=== PATIENT | male | born 1965 | race Two or more races ===

== ENCOUNTER 2022-04-14 22:54 | Emergency (ER) | payer MEDICAID, OTHER ==
[~2022-04-14] VITALS: Ht 175.3 cm; Wt 84.0 kg
[2022-04-14] MEDS ORDERED: PANTOPRAZOLE 40 MG/10 ML VIAL INJ IV ONE (23:15)
[2022-04-15 00:02] LABS: Basophils # (auto) 0.1 10 ^3/uL (0-0.2); Basophils % (auto) 0.7 % (0.0-2.0); Eosinophils # (auto) 0.2 10 ^3/uL (0-0.8); Eosinophils % (auto) 2.7 % (0.0-7.0); Hematocrit 41.7 % (41.0-53.0); Hemoglobin 13.9 g/dL (13.5-17.5); Lymphocytes # (auto) 2.5 10 ^3/uL (0.4-5.4); Lymphocytes % (auto) 30.7 % (10.0-50.0); Mean Corpuscular Hgb Conc. 33.4 g/dL (32.0-36.0); Monocytes # (auto) 0.9 10 ^3/uL (0-1.3); Monocytes % (auto) 10.5 % (0.0-12.0); Neutrophils # (auto) 4.5 10 ^3/uL (1.6-8.6); Neutrophils % (auto) 55.4 % (37.0-80.0); Nucleated Red Blood Cells % 0.1 %; Red Blood Cells 4.79 10^6/uL (4.5-5.90); Red Cell Distribution Width 13.5 % (11.8-14.3); White Blood Cell 8.2 10^3/uL (4.4-10.8)
[2022-04-15 00:16] LABS: INR 0.97 (0.9-1.15)
[2022-04-15 00:25] LABS: BUN/Creatinine Ratio 18.7; Calcium 9.3 mg/dL (8.5-10.1); Potassium 4.1 mmol/L (3.5-5.1)
[2022-04-15 00:34] LABS: Bilirubin, Total 0.5 mg/dL (0.2-1.0); Total Protein 7.4 g/dL (6.4-8.2)
[2022-04-15] MEDS ORDERED: ONDANSETRON HCL 4 MG/2 ML VIAL IV ONE (02:30)
[2022-04-15] MEDS ORDERED: HYDROmorphone HCL 2 MG/ML VL/or syr IV ONE (02:30)
[2022-04-15 02:50] VITALS: BP 113/76
[2022-04-15] MEDS ORDERED: CIPR-173 PO (03:57)
[2022-04-15] MEDS ORDERED: ONDA-144 PO (03:57)
[2022-04-15] MEDS ORDERED: PERCOT PO (03:57)
[2022-04-15] MEDS ORDERED: METR500T PO (03:57)
== END 2022-04-15 04:47 | disposition home or self-care (01) ==
LOC: ER 22:54
DX: K57.30 Diverticulosis of large intestine without perforation or abscess without bleeding (principal)
CPT/HCPCS: 36415; 71045; 74176; 80053; 83605; 83690; 84484; 85025; 85610; 93005; 96374; 96375; 99285; C9113; J1170; J2405

== ENCOUNTER 2024-08-28 13:45 | Inpatient (IN) | payer MEDICAID ==
[~2024-08-28] VITALS: Ht 175.3 cm; Wt 98.2 kg
[~2024-08-28 13:45] MED LIST: CIPR-173 PO; METR500T PO; ONDA-144 PO; PERCOT PO
--- NOTE | 2024-08-28 14:10 | ED.PDOC ---
GI ASSESSMENT HPI Comments 59 y/o M, presents to the ED for CC of flu-like symptoms. Patient states, that he has been experiencing flu-like symptoms with associated nausea, vomiting, and diarrhea x1day. Patient relays, emesis to be bright green in appearance. Patient denies social history. Patient denies body aches, chills, sweats, or headache. No other symptoms or modifying factors at this time. Chief Complaint: Flu like Time Seen by MD: 14:00 Primary Care Provider: SAVANAHIES Reviewed Notes: Nurses Notes, Medications, Allergies Allergies: Coded Allergies: NO KNOWN ALLERGIES (Unverified , 01/28/16) Home Meds Active Scripts Ondansetron (Zofran) 4 Mg Tab, 4 MG PO BID for 7 Days, #14 MG Prov:PAUL RODRIGEZ MD 04/15/22 Oxycodone W/ Acetaminophen (Percocet 5/325MG) 1 Tab Tb, 1 TAB PO BID for 7 Days, #14 TAB Prov:PAUL RODRIGEZ MD 04/15/22 Ciprofloxacin Hcl (Cipro) 500 Mg Tab, 500 MG PO BID for 7 Days, #14 CAP Prov:PAUL RODRIGEZ MD 04/15/22 Metronidazole (Flagyl) 500 Mg Tab, 500 MG PO BID for 7 Days, #14 TAB Prov:PAUL RODRIGEZ MD 04/15/22 Information Source: Patient Mode of Arrival: Ambulatory Timing: Days Duration: Since onset Prehospital treatment: None Quality: None Vomitus: Watery Stool: Watery Severity: Moderate Recent: None Recent Hx of: None Pain Location: None Modifying Factors: Nothing Associated sign and symptoms: Nausea, Vomiting, Diarrhea Past Medical History PAST MEDICAL HISTORY: Denies Surgical History: Denies all surgeries Family History Family History: Unknown Social History Smoker: Non-Smoker Alcohol: Denies ETOH Use Drugs: Denies Drug Use Constitutional: reports: fever; denies: chills, diaphoresis, fatigue, malaise, sweats, weakness, others EENTM: reports: nose congestion; denies: blurred vision, double vision, ear bleeding, ear discharge, ear drainage, ear pain, ear ringing, eye pain, eye redness, hearing loss, mouth pain, mouth swelling, nasal discharge, nose bleeding, nose pain, photophobia, tearing, throat pain, throat swelling, voice changes, others Respiratory: reports: cough; denies: hemoptysis, orthopnea, SOB at rest, shortness of breath, SOB with excertion, stridor, wheezing, others Cardiovascular: denies: chest pain, dizzy spells, diaphoresis, Dyspnea on exertion, edema, irregular heart beat, left arm pain, lightheadedness, palpitations, PND, syncope, others Gastrointestinal: reports: diarrhea, nausea, vomiting; denies: abdomen distended, abdominal pain, blood streaked bowels, constipated, dysphagia, difficulty swallowing, hematemesis, melena, poor appetite, poor fluid intake, rectal bleeding, rectal pain, others Genitourinary: denies: burning, dysuria, flank pain, frequency, hematuria, incontinence, penile discharge, penile sore, pain, testicle pain, testicle swelling, urgency, others Neurological: denies: dizziness, fainting, headache, left sided numbness, left sided weakness, numbness, paresthesia, pre-existing deficit, right sided numbness, right sided weakness, seizure, speech problems, tingling, tremors, weakness, others Musculoskeletal: denies: back pain, gout, joint pain, joint swelling, muscle pain, muscle stiffness, neck pain, others Integumetry: denies: bruises, change in color, change in hair/nails, dryness, laceration, lesions, lumps, rash, wounds, others Allergic/Immunocompromised: denies: Difficulty Healing, Frequent Infections, Hives, Itching, others Hematologic/Lymphatic: denies: anemia, blood clots, easy bleeding, easy bruis ing, swollen glands, others Endocrine: denies: excessive hunger, excessive sweating, excessive thirst, exc essive urination, flushing, intolerance to cold, intolerance to heat, unexplained weight gain, unexplained weight loss, others Psychiatric: denies: anxiety, bipolar disorder, depression, hopeless, panic disorder, schizophrenia, sleepless, suicidal, others All Other Systems: Reviewed and Negative Physical Exam General Appearance: Moderate Distress HEENT: Normal ENT Inspection, Pharynx Normal, TMs Normal Neck: Full Range of Motion, Non-Tender, Normal, Normal Inspection Respiratory: Other (Coarse breath sounds) Cardiovascular: No Edema, No JVD, No Murmur, No Gallop, Normal Peripheral Pulses, Regular Rate/Rhythm Breast Exam: Deferred Gastrointestinal: No Organomegaly, Non Tender, No Pulsatile Mass, Normal Bowel Sounds, Soft Genitalia: Deferred Pelvic: Deferred Rectal: Deferred Extremities: No calf tenderness, Normal capillary refill, Normal inspection, Normal range of motion, Non-tender, No pedal edema Musculoskeletal : Apperance: Normal Neurologic: Alert, underground foreman II-XII nml as Tested, No Motor Deficits, Normal Affect, Normal Mood, No Sensory Deficits Cerebellar Function: Normal Reflexes: Normal Skin: Dry, Normal Color, Warm Peripheral Pulses: 3+ Radial (R), 3+ Radial (L) Lymphatic: No Adenopathy Was a procedure done? Was a procedure done?: No GI differential Dx Differential Diagnosis: Constipation, Diverticular disease, Esophagitis, Gastritis/PUD, Gastroenteritis, Electrolyte Imbalance, Food Poisoning, Bacterial, Viral, Other (URI, COVID, PHARYNGITIS) X-Ray, Labs, Meds, VS Vital Signs Date Time Temp Pulse Resp B/P (MAP) Pulse Ox O2 Delivery O2 Flow Rate FiO2 08/28/24 14:00 100.2 110 20 87/52 (64) 94 90/60 (70) Lab Test 08/28/24 14:15 08/28/24 14:05 Range/Units White Blood Count 9.2 4.4-10.8 10^3/uL Red Blood Count 4.85 4.5-5.90 10^6/uL Hemoglobin 14.4 13.5-17.5 g/dL Hematocrit 42.9 41.0-53.0 % Mean Corpuscular Volume 88.5 80.0-100.0 fL Mean Corpuscular Hemoglobin 29.7 28.0-32.0 pg Mean Corpuscular Hemoglobin Concent 33.6 32.0-36.0 g/dL Red Cell Distribution Width 14.0 11.8-14.3 % Platelet Count 208 140-450 10^3/uL Mean Platelet Volume 9.1 6.9-10.8 fL Neutrophils (%) (Auto) 67.0 37.0-80.0 % Lymphocytes (%) (Auto) 18.0 10.0-50.0 % Monocytes (%) (Auto) 12.4 H 0.0-12.0 % Eosinophils (%) (Auto) 2.2 0.0-7.0 % Basophils (%) (Auto) 0.4 0.0-2.0 % Neutrophils # (Auto) 6.2 1.6-8.6 10 ^3/uL Lymphocytes # (Auto) 1.7 0.4-5.4 10 ^3/uL Monocytes # (Auto) 1.1 0-1.3 10 ^3/uL Eosinophils # (Auto) 0.2 0-0.8 10 ^3/uL Basophils # (Auto) 0 0-0.2 10 ^3/uL Nucleated Red Blood Cells 0.1 % Sodium Level 134 L 136-145 mmol/L Potassium Level 4.6 3.5-5.1 mmol/L Chloride Level 99 98-107 mmol/L Carbon Dioxide Level 27 20-31 mmol/L Anion Gap 8 5-15 Blood Urea Nitrogen 20 9-23 mg/dL Creatinine 0.99 0.700-1.30 mg/dL Glomerular Filtration Rate Calc 89 >90 mL/min BUN/Creatinine Ratio 20.2 H 10.0-20.0 Serum Glucose 105 74-106 mg/dL Calcium Level 9.8 8.7-10.4 mg/dL Urine Color Yellow Yellow Urine Clarity Clear Clear Urine pH 7.0 5.0-9.0 Urine Specific [place] 1.026 1.001-1.035 Urine Protein Trace H Negative Urine Ketones Negative Negative Urine Blood Negative Negative /uL Urine Nitrite Negative Negative Urine Bilirubin Negative Negative Urine Urobilinogen Normal Negative mg/dL Urine Leukocyte Esterase Negative Negative /uL Urine RBC 1 0 - 3 /hpf Urine Microscopic WBC 1 0-3 /HPF Urine Squamous Epithelial Cells Few <5 /hpf Urine Bacteria None seen None Seen /hpf Urine Mucus Few None Seen Urine Glucose Normal Normal mg/dL Urine Opiates Screen Neg NEGATIVE Urine Fentanyl Screen Neg NEGATIVE Urine Barbiturates Screen Neg NEGATIVE Urine Phencyclidine Screen Neg NEGATIVE Urine Amphetamines Screen Neg NEGATIVE Urine Benzodiazepines Screen Neg NEGATIVE Urine Cocaine Screen Neg NEGATIVE Urine Cannabinoids Screen Neg NEGATIVE Current Medications Medications (Trade) Dose Ordered Sig/Lemuel Route Start Time Stop Time Status Last Admin Methylprednisolone Sodium Succinate (Solu Medrol) 125 mg ONCE ONCE IV 08/28/24 14:00 08/28/24 14:01 DC 08/28/24 16:24 Ceftriaxone Sodium 50 ml @ 100 mls/hr ONCE ONCE IV 08/28/24 14:00 08/28/24 14:29 DC 08/28/24 16:23 [facility] [id number] [place] [id number] Ph: [phone] DIAGNOSTIC IMAGING Diagnostic Imaging Report : [id number] Signed PATIENT: SULAIMAN YOUNGBLOOD ACCT: [id number] UNIT: [id number] : 1965 LOC: ER ROOM / BED: / AGE / SEX: 59 / M ADM STATUS: REG ER SERVICE 1401 ORDERING PHYSICIAN: KRISTIN FARIAS MD PROCEDURE(s): CXRP - CHEST PORTABLE REASON: SOB ORDER NUMBER(s): [id number], ACCESSION NUMBER(s): [id number] CHEST RADIOGRAPH Indication: SOB Technique: Single frontal view of the chest was obtained Comparison: CHEST PORTABLE on DOS: 04/14/22, CXRP on DOS: 04/14/22 FINDINGS: Lines and Tubes: None Lungs: No focal consolidation. Pleura: No effusion.No pneumothorax. Cardiomediastinal contours: Unremarkable Pulmonary vasculature: Within normal limits. Bones: No acute osseous abnormality. IMPRESSION: 1. No acute cardiopulmonary disease. HS:Y ATED BY: LEONEL OSUNA MD DICTATED DATE/TIME: 08/28/241425 SIGNED BY: LEONEL OSUNA MD SIGNED DATE/TIME: 08/28/241425 CC: Patient alert. Complaining of nausea vomiting cough. Vitals stable. Answering all questions. Chest x-ray reviewed does not show any acute changes. Possible pneumonitis. Does have inflammation of the lungs upon deep inspiration. Was given steroid. Was given Rocephin. Reviewed his history. Explained to the patient. Continue cardiac monitoring. Time of 1ST Reevaluation: 14:30 Reevaluation 1ST: Unchanged Patient Education/Counseling: Diagnosis, Treatment Family Education/Counseling: No Family Present Additional Information I reviewed the following notes from patient's past medical encounters: DX: GI BLEED, ABD PAIN The following tests were ordered, and results were reviewed by me: CBC, BMP, DRUG SCREEN, RAPID INFLUENZA A&B, UA, CXR I reviewed and agreed with the following test results read by other providers: CXR I discussed treatment and results with medical personnel and: PATIENT Departure 1 Departure Time of Disposition: 17:02 Impression: Primary Impression: Pneumonitis Additional Impressions: Intractable nausea and vomiting Sinusitis Qualified Codes: J01.10 - Acute frontal sinusitis, unspecified Disposition: ADMITTED INPATIENT Admit to: Med Surg Condition: Guarded Critical Care Note Critical Care Time?: No Stability Stability form required: No Heart Score Heart Score: Heart Score Response (Comments) Value History N/A 0 EKG N/A 0 Age N/A 0 Risk Factors N/A 0 Troponin N/A 0 Total 0 I personally scribed for KRISTIN FARIAS MD ([email or web address]) on 08/28/24 at 14:10. Electronically submitted by Emily Mcclain ([email or web address]). I personally scribed for KRISTIN FARIAS MD ([email or web address]) on 08/28/24 at 15:36. Electronically submitted by Emily Mcclain ([email or web address]). KRISTIN FARIAS MD Aug 28, 2024 14:10
--- NOTE | 2024-08-28 14:29 | DVH ---
CHEST RADIOGRAPH Indication: SOB Technique: Single frontal view of the chest was obtained Comparison: CHEST PORTABLE on DOS: 04/14/22, CXRP on DOS: 04/14/22 FINDINGS: Lines and Tubes: None Lungs: No focal consolidation. Pleura: No effusion.No pneumothorax. Cardiomediastinal contours: Unremarkable Pulmonary vasculature: Within normal limits. Bones: No acute osseous abnormality. IMPRESSION: 1. No acute cardiopulmonary disease. HS:Y
[2024-08-28 14:42] LABS: Chloride 99 mmol/L (98-107); Potassium 4.6 mmol/L (3.5-5.1)
[2024-08-28 14:43] LABS: Anion Gap 8 (5-15); Calcium 9.8 mg/dL (8.7-10.4); Carbon Dioxide 27 mmol/L (20-31)
[2024-08-28 14:48] LABS: BUN/Creatinine Ratio 20.2 (10.0-20.0); Blood Urea Nitrogen 20 mg/dL (9-23); Glucose 105 mg/dL (74-106)
[2024-08-28 14:56] LABS: Sodium 134 mmol/L (136-145)
[2024-08-28 15:09] LABS: Basophils # (auto) 0 10 ^3/uL (0-0.2); Basophils % (auto) 0.4 % (0.0-2.0); Eosinophils # (auto) 0.2 10 ^3/uL (0-0.8); Eosinophils % (auto) 2.2 % (0.0-7.0); Hematocrit 42.9 % (41.0-53.0); Hemoglobin 14.4 g/dL (13.5-17.5); Lymphocytes # (auto) 1.7 10 ^3/uL (0.4-5.4); Mean Corpuscular Hemoglobin 29.7 pg (28.0-32.0); Mean Corpuscular Hgb Conc. 33.6 g/dL (32.0-36.0); Mean Corpuscular Volume 88.5 fL (80.0-100.0); Monocytes # (auto) 1.1 10 ^3/uL (0-1.3); Monocytes % (auto) 12.4 % (0.0-12.0); Neutrophils # (auto) 6.2 10 ^3/uL (1.6-8.6); Nucleated Red Blood Cells % 0.1 %; Platelet Count (auto) 208 10^3/uL (140-450); Red Blood Cells 4.85 10^6/uL (4.5-5.90); White Blood Cell 9.2 10^3/uL (4.4-10.8)
[2024-08-28 15:36] LABS: Urine Bacteria None Seen /hpf (None Seen)
[2024-08-28 15:49] LABS: Urine Blood Negative /uL (Negative); Urine Clarity Clear (Clear); Urine Color Yellow (Yellow); Urine Mucus FEW (None Seen); Urine Protein, UAD TRACE (Negative); Urine Specific Gravity 1.026 (1.001-1.035); Urine Squamous Epithelial Cell FEW /hpf (<5); Urine Urobilinogen Normal (Negative); Urine WBC 1 /HPF (0-3)
[2024-08-28 15:55] LABS: Amphetamine Screen, Urine Neg (NEGATIVE); Barbiturate Scree,Urine Neg (NEGATIVE); Benzodiazephine Screen, Urine Neg (NEGATIVE); Cannabinoid Screen, Urine Neg (NEGATIVE); Cocaine Screen, Urine Neg (NEGATIVE); Opiate Scree,Urine Neg (NEGATIVE); Phencyclidine Screen, Urine Neg (NEGATIVE)
[2024-08-28] MEDS: cefTRIAXone 1GM/50ML D5W 50 ML IV ONE (16:23)
[2024-08-28] MEDS: methylPREDNISolone SOD SUCC 125 MG/2 ML VL IV ONE (16:24)
[2024-08-28 18:26] LABS: Rapid Influenza A Negative (Negative); Rapid Influenza B Negative (Negative)
[2024-08-28 18:31] LABS: COVID19 ANTIGEN SOFIA FIA POSITIVE (NEGATIVE)
[2024-08-28] MEDS ORDERED: NITROGLYCERIN 0.4 MG SL TAB SL PRN (20:00)
[2024-08-28] MEDS ORDERED: ONDANSETRON HCL 4 MG/2 ML VIAL IV PRN (20:00)
[2024-08-28] MEDS ORDERED: MORPHINE SULFATE INJ 2 MG/ml SYRG IV PRN (20:00)
[2024-08-28 21:08] LABS: Magnesium 1.9 mg/dL (1.6-2.6)
[2024-08-28 21:12] LABS: Lactic Acid w/Reflex 3.1 mmol/L (0.4-2.0)
[2024-08-28 21:18] LABS: CRP High Sensitivity 7.02 mg/dL (<1.0)
[2024-08-28 23:10] VITALS: PULSE 74; RESP 20; O2SAT 93
[2024-08-29] VITALS (10 sets, daily range): BP systolic 104–124; BP diastolic 58–65; PULSE 65–82; RESP 16–20; TEMP 97.9–98.2; O2SAT 93–98
--- NOTE | 2024-08-29 03:28 | DVHHP2 ---
History of Present Illness Reason for Visit: Generalized weakness History of Present Illness 59-year-old male presents for evaluation of generalized weakness. Patient reports feeling fatigued with flu-like symptoms including nausea, vomiting, diarrhea. He also reports body aches and intermittent chills. Reports having a nonproductive cough. Reports mild shortness for breath. Denies chest pain or palpitations. Past Medical History Denies Past Surgical History Denies Family History Noncontributory Smoke: No ALCOHOL: none Drugs: None Lives: with Family Review of Systems Review of Systems Review of systems are currently negative otherwise addressed in HPI. Allergies: Coded Allergies: NO KNOWN ALLERGIES (Unverified , 01/28/16) Medications Current Medications Medications Dose Ordered Sig/Lemuel Route Start Time Stop Time Status Last Admin Dose Admin Nitroglycerin 0.4 mg Q5MINP PRN SL 08/28/24 20:00 Morphine Sulfate 2 mg Q30M PRN IV 08/28/24 20:00 Ceftriaxone Sodium 50 ml @ 100 mls/hr DAILY@09 IV 08/29/24 09:00 Zinc Sulfate 220 mg DAILY PO 08/29/24 10:00 Enoxaparin Sodium 40 mg DAILY SC 08/29/24 10:00 Temazepam 15 mg QHSP PRN PO 08/28/24 20:00 Ondansetron HCl 4 mg Q4HP PRN IV 08/28/24 20:00 Acetaminophen 650 mg Q6HP PRN PO 08/28/24 20:00 Albuterol 2.5 mg Q6HPRN PRN NEB 08/29/24 03:30 UNV Guaifenesin/ Dextromethorphan 10 ml Q4HP PRN PO 08/29/24 03:30 UNV Exam Vital Signs Vital Signs Date Time Temp Pulse Resp B/P (MAP) Pulse Ox O2 Delivery O2 Flow Rate FiO2 08/29/24 00:00 69 16 107/56 (73) 93 08/28/24 23:10 Room Air* 0 21 08/28/24 23:04 98.2 98.2 Exam Gen: 59-year-old male mild distress Skin: Warm, dry, normal color and texture, no rash. HEENT: Normocephalic atraumatic, mucous membranes moist and pink. Neck: Cervical and supraclavicular nodes normal without enlargement, trachea is midline, thyroid gland is normal without masses. Pulmonary: Clear to auscultation and percussion bilaterally. Cardiac: Regular rate and rhythm. No murmur Abdomen: Soft, nontender, nondistended, bowel sounds present all 4 quadrants, no guarding, no rigidity, no organomegaly. Extremities: No cyanosis, clubbing, no edema Neuro: Cranial nerves II through XII grossly intact, normal affect and speech, no focal motor deficits. Labs/Xrays ORDERING PHYSICIAN: KRISTIN FARIAS MD PROCEDURE(s): CXRP - CHEST PORTABLE REASON: SOB ORDER NUMBER(s): [id number], ACCESSION NUMBER(s): [id number] CHEST RADIOGRAPH Indication: SOB Technique: Single frontal view of the chest was obtained Comparison: CHEST PORTABLE on DOS: 04/14/22, CXRP on DOS: 04/14/22 FINDINGS: Lines and Tubes: None Lungs: No focal consolidation. Pleura: No effusion.No pneumothorax. Cardiomediastinal contours: Unremarkable Pulmonary vasculature: Within normal limits. Bones: No acute osseous abnormality. IMPRESSION: 1. No acute cardiopulmonary disease. HS:Y Labs Test 08/28/24 22:21 08/28/24 20:20 08/28/24 17:41 08/28/24 14:15 Range/Units Lactic Acid Level 2.2 *H 0.4-2.0 mmol/L D-Dimer, Quantitative 0.44 0.0-0.49 mg/L FEU Vitamin D 25-Hydroxy 21.6 L 30.0-100 ng/mL Influenza Type A Antigen Negative Negative Influenza Type B Antigen Negative Negative SARS-CoV-2 Antigen (Rapid) Positive *A NEGATIVE White Blood Count 9.2 4.4-10.8 10^3/uL Red Blood Count 4.85 4.5-5.90 10^6/uL Hemoglobin 14.4 13.5-17.5 g/dL Hematocrit 42.9 41.0-53.0 % Mean Corpuscular Volume 88.5 80.0-100.0 fL Mean Corpuscular Hemoglobin 29.7 28.0-32.0 pg Mean Corpuscular Hemoglobin Concent 33.6 32.0-36.0 g/dL Red Cell Distribution Width 14.0 11.8-14.3 % Platelet Count 208 140-450 10^3/uL Mean Platelet Volume 9.1 6.9-10.8 fL Neutrophils (%) (Auto) 67.0 37.0-80.0 % Lymphocytes (%) (Auto) 18.0 10.0-50.0 % Monocytes (%) (Auto) 12.4 H 0.0-12.0 % Eosinophils (%) (Auto) 2.2 0.0-7.0 % Basophils (%) (Auto) 0.4 0.0-2.0 % Neutrophils # (Auto) 6.2 1.6-8.6 10 ^3/uL Lymphocytes # (Auto) 1.7 0.4-5.4 10 ^3/uL Monocytes # (Auto) 1.1 0-1.3 10 ^3/uL Eosinophils # (Auto) 0.2 0-0.8 10 ^3/uL Basophils # (Auto) 0 0-0.2 10 ^3/uL Nucleated Red Blood Cells 0.1 % Sodium Level 134 L 136-145 mmol/L Potassium Level 4.6 3.5-5.1 mmol/L Chloride Level 99 98-107 mmol/L Carbon Dioxide Level 27 20-31 mmol/L Anion Gap 8 5-15 Blood Urea Nitrogen 20 9-23 mg/dL Creatinine 0.99 0.700-1.30 mg/dL Glomerular Filtration Rate Calc 89 >90 mL/min BUN/Creatinine Ratio 20.2 H 10.0-20.0 Serum Glucose 105 74-106 mg/dL Calcium Level 9.8 8.7-10.4 mg/dL Magnesium Level 1.9 1.6-2.6 mg/dL C-Reactive Protein High Sensitivity 7.02 H <1.0 mg/dL Test 08/28/24 14:05 Range/Units Urine Color Yellow Yellow Urine Clarity Clear Clear Urine pH 7.0 5.0-9.0 Urine Specific [place] 1.026 1.001-1.035 Urine Protein Trace H Negative Urine Ketones Negative Negative Urine Blood Negative Negative /uL Urine Nitrite Negative Negative Urine Bilirubin Negative Negative Urine Urobilinogen Normal Negative mg/dL Urine Leukocyte Esterase Negative Negative /uL Urine RBC 1 0 - 3 /hpf Urine Microscopic WBC 1 0-3 /HPF Urine Squamous Epithelial Cells Few <5 /hpf Urine Bacteria None seen None Seen /hpf Urine Mucus Few None Seen Urine Glucose Normal Normal mg/dL Urine Opiates Screen Neg NEGATIVE Urine Fentanyl Screen Neg NEGATIVE Urine Barbiturates Screen Neg NEGATIVE Urine Phencyclidine Screen Neg NEGATIVE Urine Amphetamines Screen Neg NEGATIVE Urine Benzodiazepines Screen Neg NEGATIVE Urine Cocaine Screen Neg NEGATIVE Urine Cannabinoids Screen Neg NEGATIVE Assessment/Plan Assessment/Plan Assessment Acute pneumonitis COVID-19 Plan Admit the patient to telemetry to the hospitalist COVID-19 protocol Continue treatment per orders. Plan discussed with: Patient My Orders Orders - CLARKDARRELLJOHANAAlonzo SANTIAGO Procedure Category Date Status Time Admit ADMIT 08/28/24 Transmitted 19:53 Nitroglycerin PHA 08/28/24 In Process Sublingual (Ntrostat 20:00 Morphine Sulfate PHA 08/28/24 In Process Injection 20:00 Stat Ekg For Chest CARSON 08/28/24 In Process Pain 19:53 Notify Of Changes CARSON 08/28/24 In Process From Base 19:53 Material Mixer For CARSON 08/28/24 In Process 24 Hours 19:53 Emergency Dysrhythmia CARSON 08/28/24 In Process Protocol 19:53 Rhythm Strips Once CARSON 08/28/24 In Process Every Shift 19:53 Oxygen By Nasal RT 08/28/24 Transmitted Cannula 19:53 Ceftriaxone 1gm/50ml PHA 08/29/24 In Process D5w (Rocephin) 09:00 Isolation Order ORDERS 08/28/24 Transmitted 19:55 Precautions CARSON 08/28/24 In Process (Contact,Droplets, 19:55 Complete Blood Count LAB 08/29/24 Logged 05:30 Comprehensive LAB 08/29/24 Logged Metabolic Panel 05:30 Complete Blood Count LAB 09/01/24 Verified 05:30 Comprehensive LAB 09/01/24 Verified Metabolic Panel 05:30 Lactate Dehydrogenase LAB 09/01/24 Verified 05:30 Chest Portable XY 08/29/24 Logged 07:00 Chest Portable XY 09/01/24 Logged 07:00 Electrocardigram EKG 09/01/24 Logged 08:00 Zinc Sulfate PHA 08/29/24 In Process 10:00 Oob To Chair CARSON 08/28/24 In Process 19:55 Incentive Spirometry ORDERS 08/28/24 Transmitted Q 1hr 19:55 Material Mixer ORDERS 08/28/24 Transmitted 19:55 C-Reactive Protein LAB 09/01/24 Verified 19:55 Enoxaparin Sodium PHA 08/29/24 In Process (Lovenox) 10:00 Temazepam (Restoril) PHA 08/28/24 In Process 20:00 Ondansetron Hcl PHA 08/28/24 In Process (Zofran) 20:00 Cardiac DIET 08/29/24 Transmitted Diet-2gna,Lofat,Lochol Breakfast Condition: Fair CARSON 08/28/24 In Process 19:55 Acetaminophen Tablet PHA 08/28/24 In Process (Tylenol Tablet) 20:00 Bedrest With Bathroom CARSON 08/28/24 In Process Privileg 19:55 Albuterol Medneb PHA 08/29/24 Transmitted (Ventolin Medneb) 03:30 Guaifenesin-Dextromet PHA 08/29/24 Transmitted Liquid (Robitussin 03:30 Date of Service: Aug 28, 2024 Billing Provider: DARRELL CLARK Common Visit Codes: [id number] INP/OBS CARE (HIGH) DARRELL CLARK Aug 29, 2024 03:27
--- NOTE | 2024-08-29 05:56 | DVH ---
EXAM: XR Chest, 1 View CLINICAL INDICATION: Covid-19 pneumonia TECHNIQUE: Frontal view of the chest. COMPARISON: XY CHEST PORTABLE on DOS: 08/28/24, CHEST PORTABLE on DOS: 04/14/22, CXRP on DOS: 04/14/22 FINDINGS: LUNGS AND PLEURAL SPACES: Left basilar atelectasis or pneumonia. No pneumothorax. HEART: Unremarkable. No cardiomegaly. MEDIASTINUM: Unremarkable. Normal mediastinal contour. BONES/JOINTS: Unremarkable. No acute fracture. OTHER FINDINGS: . . . .. IMPRESSION: Left basilar atelectasis or pneumonia.
[2024-08-29 06:12] LABS: Basophils # (auto) 0 10 ^3/uL (0-0.2); Basophils % (auto) 0.1 % (0.0-2.0); Eosinophils # (auto) 0 10 ^3/uL (0-0.8); Hematocrit 40.2 % (41.0-53.0); Hemoglobin 13.8 g/dL (13.5-17.5); Lymphocytes % (auto) 12.2 % (10.0-50.0); Mean Corpuscular Hemoglobin 30.5 pg (28.0-32.0); Mean Corpuscular Hgb Conc. 34.5 g/dL (32.0-36.0); Mean Corpuscular Volume 88.4 fL (80.0-100.0); Monocytes # (auto) 0.3 10 ^3/uL (0-1.3); Monocytes % (auto) 4.1 % (0.0-12.0); Neutrophils # (auto) 6.7 10 ^3/uL (1.6-8.6); Neutrophils % (auto) 83.6 % (37.0-80.0); Nucleated Red Blood Cells % 0.1 %; Platelet Count (auto) 205 10^3/uL (140-450); Red Blood Cells 4.54 10^6/uL (4.5-5.90); Red Cell Distribution Width 13.8 % (11.8-14.3)
[2024-08-29 06:23] LABS: Alanine Aminotransferase 33 U/L (7-40); Albumin 4.6 g/dL (3.2-4.8); Alkaline Phosphatase 97 U/L (46-116); Anion Gap 11 (5-15); Aspartate Aminotransferase 20 U/L (13-40); BUN/Creatinine Ratio 17.2 (10.0-20.0); Blood Urea Nitrogen 17 mg/dL (9-23); Calcium 9.9 mg/dL (8.7-10.4); Carbon Dioxide 23 mmol/L (20-31); Chloride 101 mmol/L (98-107); Potassium 4.5 mmol/L (3.5-5.1)
[2024-08-29 06:24] LABS: Bilirubin, Total 0.7 mg/dL (0.2-1.0); Total Protein 7.1 g/dL (5.7-8.2)
[2024-08-29 06:26] LABS: Glucose 163 mg/dL (74-106); Sodium 135 mmol/L (136-145)
[2024-08-29] MEDS: cefTRIAXone 1GM/50ML D5W 50 ML IV SCH (09:38)
[2024-08-29] MEDS: ZINC SULFATE 220mg CAP or TAB PO SCH (09:41)
[2024-08-29] MEDS: ENOXAPARIN SOD 40 MG/0.4 ML SYRINGE SC SCH (09:41)
[2024-08-29] MEDS: ALBUTEROL SULF 2.5 MG/0.5ML(0.5%) NEB SOLN NEB PRN (10:50)
[2024-08-29] MEDS ORDERED: REMDESIVIR PER PHARMACY 0 ML IV SCH (11:15)
[2024-08-29] MEDS: AZITHROMYCIN 500MG/ 250ML 250 ML IV ONE (13:16)
[2024-08-29] MEDS: methylPREDNISolone SOD SUCC 40 MG/ML VL IV ONE (13:16)
[2024-08-29] MEDS: REMDESIVIR 200mg in NS 210mL LOADING DOSE ADULT IV ONE (15:00)
--- NOTE | 2024-08-29 15:10 | DVHPN2 ---
Subjective 08/29 patient in room in mild distress, able to hold a conversation, able to speak full sentences. Endorses that he was feeling better. Still has some fatigue cough. A&O times 3-4. Is on nasal cannula 3-4 L. we will continue treatment as COVID pneumonia and community-acquired pneumonia. Reviewed: Care Plan, H&P Changes from previous H/P or p: No Changes General: Per HPI Objective Vitals Vital Signs Date Time Temp Pulse Resp B/P (MAP) Pulse Ox O2 Delivery O2 Flow Rate FiO2 08/29/24 14:00 86 20 116/71 (86) 94 08/29/24 12:00 98.1 98.1 08/29/24 10:50 Nasal Cannula 3.0 08/29/24 10:50 32 Intake/Output Intake and Output 08/29/24 07:00 Intake Total 50 ml Balance 50 ml Intake IV Total 50 ml Exam GEN: Healthy appearing, well-developed, NAD. HEENT: NC/AT; MMM. CV: RRR, no m/r/g. LUNGS: CTAB, no w/r/c. ABD: Soft, NT/ND, NBS, no masses or organomegaly. EXT: skin Warm, well perfused. no rashes. No clubbing, cyanosis, or edema. NEURO: Ambulating with no limitations. No focal deficits. Medications Current Medications Medications Dose Ordered Sig/Lemuel Route Start Time Stop Time Status Last Admin Dose Admin Nitroglycerin 0.4 mg Q5MINP PRN SL 08/28/24 20:00 Morphine Sulfate 2 mg Q30M PRN IV 08/28/24 20:00 Ceftriaxone Sodium 50 ml @ 100 mls/hr DAILY@09 IV 08/29/24 09:00 08/29/24 09:38 100 MLS/HR Zinc Sulfate 220 mg DAILY PO 08/29/24 10:00 08/29/24 09:41 220 MG Enoxaparin Sodium 40 mg DAILY SC 08/29/24 10:00 Temazepam 15 mg QHSP PRN PO 08/28/24 20:00 Ondansetron HCl 4 mg Q4HP PRN IV 08/28/24 20:00 Acetaminophen 650 mg Q6HP PRN PO 08/28/24 20:00 Albuterol 2.5 mg Q6HPRN PRN NEB 08/29/24 03:30 08/29/24 10:50 2.5 MG Guaifenesin/ Dextromethorphan 10 ml Q4HP PRN PO 08/29/24 03:30 Remdesivir 0 ml @ 0 mls/hr PER PHARMACY IV 08/29/24 11:15 08/31/24 11:16 Azithromycin 250 ml @ 125 mls/hr DAILY IV 08/30/24 10:00 Future Hold Albuterol 90 mcg TID IN 08/29/24 14:00 Methylprednisolone Sodium Succinate 40 mg DAILY IV 08/30/24 10:00 Remdesivir 100 mg/ Sodium Chloride 250 ml @ 250 mls/hr DAILY@1500 IV 08/30/24 15:00 08/31/24 15:59 Laboratory Results Laboratory Tests 08/29/24 05:35 Chemistry Test 08/29/24 05:35 Albumin 4.6 g/dL (3.2-4.8) Calcium Level 9.9 mg/dL (8.7-10.4) Total Protein 7.1 g/dL (5.7-8.2) Coagulation Test 08/28/24 20:20 D-Dimer, Quantitative 0.44 mg/L FEU (0.0-0.49) LFT Test 08/29/24 05:35 Alanine Aminotransferase (ALT) 33 U/L (7-40) Alkaline Phosphatase 97 U/L (46-116) Aspartate Amino Transferase (AST) 20 U/L (13-40) Total Bilirubin 0.7 mg/dL (0.2-1.0) Urinalysis Test 08/28/24 14:05 Urine Color Yellow (Yellow) Urine Clarity Clear (Clear) Urine pH 7.0 (5.0-9.0) Urine Specific [place] 1.026 (1.001-1.035) Urine Protein Trace (Negative) H Urine Ketones Negative (Negative) Urine Blood Negative /uL (Negative) Urine Nitrite Negative (Negative) Urine Bilirubin Negative (Negative) Urine Urobilinogen Normal mg/dL (Negative) Urine Leukocyte Esterase Negative /uL (Negative) Urine RBC 1 /hpf (0 - 3) Urine Microscopic WBC 1 /HPF (0-3) Urine Squamous Epithelial Cells Few /hpf (<5) Urine Bacteria None seen /hpf (None Seen) Urine Mucus Few (None Seen) Urine Glucose Normal mg/dL (Normal) Labs and/or images reviewed: Labs reviewed by , Image(s) reviewed by me Assessment/Plan Assessment/Plan 08/29 patient in room in mild distress, able to hold a conversation, able to speak full sentences. Endorses that he was feeling better. Still has some fatigue cough. A&O times 3-4. Is on nasal cannula 3-4 L. we will continue treatment as COVID pneumonia and community-acquired pneumonia. Sepsis due to pneumonia Pneumonia, Gram-negative Gram-positive likely COVID-19 infection COVID pneumonia Tachycardia Tachypnea Lactic acidosis -patient presented with generalized weakness. On exam noted to have tachypnea tachycardia. On workup shows rapid COVID positive. Requiring nasal cannula to maintain saturations. No history of COPD/smoking. --No opacities on CXR. -ceftriaxone azithromycin -remdesivir -Solu-Medrol -albuterol inhaler Diet regular DVT Lovenox GI Protonix Med tele Full code Plan discussed with: Patient My Orders Orders - BIBI CAIN MD Procedure Category Date Status Time Remdesivir Per PHA 08/29/24 In Process Pharmacy 11:15 Azithromycin 500mg/ PHA 08/30/24 In Process 250ml (Zithromax 50 10:00 Albuterol Inhaler PHA 08/29/24 In Process (Ventolin Hfa) 14:00 Methylprednisolone PHA 08/30/24 In Process Sod Succ (Solu Medrol 10:00 Remdesivir 100mg PHA 08/29/24 In Process (Veklury) 15:00 Remdesivir 100mg PHA 08/30/24 In Process (Veklury) 15:00 Date of Service: Aug 29, 2024 Billing Provider: BIBI CAIN MD Common Visit Codes: [id number] INP/OBS CARE(HIGH) BIBI CAIN MD Aug 29, 2024 15:10
[2024-08-29] MEDS: ALBUTEROL SULF HFA 90MCG INH 200DOSE IN SCH (22:57)
[2024-08-30] VITALS (13 sets, daily range): BP systolic 106–135; BP diastolic 59–76; PULSE 63–75; RESP 16–19; TEMP 97.5–98.3; O2SAT 93–98
[2024-08-30] MEDS: ACETAMINOPHEN 325 MG TAB PO PRN (01:11)
[2024-08-30] MEDS: TEMAZEPAM 15 MG CAP PO PRN (01:11)
[2024-08-30 06:26] LABS: Basophils # (auto) 0 10 ^3/uL (0-0.2); Basophils % (auto) 0.1 % (0.0-2.0); Eosinophils # (auto) 0 10 ^3/uL (0-0.8); Eosinophils % (auto) 0.3 % (0.0-7.0); Hemoglobin 13.1 g/dL (13.5-17.5); Lymphocytes # (auto) 1.8 10 ^3/uL (0.4-5.4); Lymphocytes % (auto) 12.8 % (10.0-50.0); Mean Corpuscular Hemoglobin 29.7 pg (28.0-32.0); Mean Corpuscular Hgb Conc. 33.6 g/dL (32.0-36.0); Mean Corpuscular Volume 88.4 fL (80.0-100.0); Monocytes # (auto) 1.1 10 ^3/uL (0-1.3); Monocytes % (auto) 8.1 % (0.0-12.0); Neutrophils # (auto) 11.2 10 ^3/uL (1.6-8.6); Neutrophils % (auto) 78.7 % (37.0-80.0); Platelet Count (auto) 211 10^3/uL (140-450); Red Blood Cells 4.41 10^6/uL (4.5-5.90); Red Cell Distribution Width 13.9 % (11.8-14.3); White Blood Cell 14.2 10^3/uL (4.4-10.8)
[2024-08-30 06:45] LABS: Alanine Aminotransferase 34 U/L (7-40); Albumin 4.2 g/dL (3.2-4.8); Alkaline Phosphatase 86 U/L (46-116); Anion Gap 8 (5-15); Aspartate Aminotransferase 19 U/L (13-40); BUN/Creatinine Ratio 25.7 (10.0-20.0); Bilirubin, Total 0.5 mg/dL (0.2-1.0); Blood Urea Nitrogen 19 mg/dL (9-23); Calcium 9.4 mg/dL (8.7-10.4); Carbon Dioxide 25 mmol/L (20-31); Chloride 104 mmol/L (98-107); Potassium 4.1 mmol/L (3.5-5.1); Sodium 137 mmol/L (136-145); Total Protein 6.6 g/dL (5.7-8.2)
[2024-08-30 06:46] LABS: Glucose 121 mg/dL (74-106)
[2024-08-30] MEDS ORDERED: AZITHROMYCIN 500MG/ 250ML 250 ML IV SCH (10:00)
[2024-08-30] MEDS: methylPREDNISolone SOD SUCC 40 MG/ML VL IV SCH (10:15)
[2024-08-30] MEDS: guaiFENesin-DM 100/10mg/5ml SYR PO PRN (10:15)
--- NOTE | 2024-08-30 14:39 | DVHPN2 ---
Subjective update 08/30 08/29 patient in room in mild distress, able to hold a conversation, able to speak full sentences. Endorses that he was feeling better. Still has some fatigue cough. A&O times 3-4. Is on nasal cannula 3-4 L. we will continue treatment as COVID pneumonia and community-acquired pneumonia. 08/30 remains on oxygen, will need weaning. lungs with some rales on LLL regions, otherwise clear. appears a bit tired from illness, no increased WOB. will continue rem/abx(ctz/zpac) /solumedrol / albuterol inh qid and prn. and wean oxygen. goal improvement and off oxygen by monday/monday for dc. Reviewed: Care Plan, H&P Changes from previous H/P or p: No Changes General: Per HPI Objective Vitals Vital Signs Date Time Temp Pulse Resp B/P (MAP) Pulse Ox O2 Delivery O2 Flow Rate FiO2 08/30/24 12:54 98.0 69 19 135/76 (95) 93 98.0 08/30/24 07:54 Nasal Cannula 2.0 08/30/24 07:54 28 Intake/Output Intake and Output 08/30/24 07:00 Intake Total 1200 ml Balance 1200 ml Intake Oral 900 ml IV Total 300 ml # Voids 4 Exam GEN: Healthy appearing, well-developed, NAD. HEENT: NC/AT; MMM. CV: RRR, no m/r/g. LUNGS: CTAB, no w/r/c. ABD: Soft, NT/ND, NBS, no masses or organomegaly. EXT: skin Warm, well perfused. no rashes. No clubbing, cyanosis, or edema. NEURO: Ambulating with no limitations. No focal deficits. Medications Current Medications Medications Dose Ordered Sig/Lemuel Route Start Time Stop Time Status Last Admin Dose Admin Nitroglycerin 0.4 mg Q5MINP PRN SL 08/28/24 20:00 Morphine Sulfate 2 mg Q30M PRN IV 08/28/24 20:00 Ceftriaxone Sodium 50 ml @ 100 mls/hr DAILY@09 IV 08/29/24 09:00 08/30/24 10:14 100 MLS/HR Zinc Sulfate 220 mg DAILY PO 08/29/24 10:00 08/30/24 10:00 220 MG Enoxaparin Sodium 40 mg DAILY SC 08/29/24 10:00 Temazepam 15 mg QHSP PRN PO 08/28/24 20:00 08/30/24 01:11 15 MG Ondansetron HCl 4 mg Q4HP PRN IV 08/28/24 20:00 Acetaminophen 650 mg Q6HP PRN PO 08/28/24 20:00 08/30/24 01:11 650 MG Albuterol 2.5 mg Q6HPRN PRN NEB 08/29/24 03:30 08/29/24 10:50 2.5 MG Guaifenesin/ Dextromethorphan 10 ml Q4HP PRN PO 08/29/24 03:30 08/30/24 10:15 10 ML Remdesivir 0 ml @ 0 mls/hr PER PHARMACY IV 08/29/24 11:15 08/31/24 11:16 Azithromycin 250 ml @ 125 mls/hr DAILY IV 08/30/24 10:00 Hold Albuterol 90 mcg TID IN 08/29/24 14:00 08/30/24 07:54 90 MCG Methylprednisolone Sodium Succinate 40 mg DAILY IV 08/30/24 10:00 08/30/24 10:15 40 MG Remdesivir 100 mg/ Sodium Chloride 250 ml @ 250 mls/hr DAILY@1500 IV 08/30/24 15:00 08/31/24 15:59 Laboratory Results Laboratory Tests 08/30/24 05:55 Chemistry Test 08/30/24 05:55 Albumin 4.2 g/dL (3.2-4.8) Calcium Level 9.4 mg/dL (8.7-10.4) Total Protein 6.6 g/dL (5.7-8.2) LFT Test 08/30/24 05:55 Alanine Aminotransferase (ALT) 34 U/L (7-40) Alkaline Phosphatase 86 U/L (46-116) Aspartate Amino Transferase (AST) 19 U/L (13-40) Total Bilirubin 0.5 mg/dL (0.2-1.0) Urinalysis Test 08/28/24 14:05 Urine Color Yellow (Yellow) Urine Clarity Clear (Clear) Urine pH 7.0 (5.0-9.0) Urine Specific [place] 1.026 (1.001-1.035) Urine Protein Trace (Negative) H Urine Ketones Negative (Negative) Urine Blood Negative /uL (Negative) Urine Nitrite Negative (Negative) Urine Bilirubin Negative (Negative) Urine Urobilinogen Normal mg/dL (Negative) Urine Leukocyte Esterase Negative /uL (Negative) Urine RBC 1 /hpf (0 - 3) Urine Microscopic WBC 1 /HPF (0-3) Urine Squamous Epithelial Cells Few /hpf (<5) Urine Bacteria None seen /hpf (None Seen) Urine Mucus Few (None Seen) Urine Glucose Normal mg/dL (Normal) Labs and/or images reviewed: Labs reviewed by me, Image(s) reviewed by me Assessment/Plan Assessment/Plan 08/30 remains on oxygen, will need weaning. lungs with some rales on LLL regions, otherwise clear. appears a bit tired from illness, no increased WOB. will continue rem/abx(ctz/zpac) /solumedrol / albuterol inh qid and prn. and wean oxygen. goal improvement and off oxygen by monday/monday for dc. Sepsis due to pneumonia Pneumonia, Gram-negative Gram-positive likely COVID-19 infection COVID pneumonia Tachycardia Tachypnea Lactic acidosis -patient presented with generalized weakness. On exam noted to have tachypnea tachycardia. On workup shows rapid COVID positive. Requiring nasal cannula to maintain saturations. No history of COPD/smoking. --No opacities on CXR. -ceftriaxone azithromycin -remdesivir -Solu-Medrol 40 daily -albuterol inhaler qid Diet regular DVT Lovenox GI Protonix Med tele Full code Plan discussed with: Patient Date of Service: Aug 30, 2024 Billing Provider: BIBI CAIN MD Common Visit Codes: [id number] INP/OBS CARE(HIGH) BIBI CAIN MD Aug 30, 2024 14:39
[2024-08-30] MEDS: REMDESIVIR 100mg in NS 230mL (3 DAY REGIMEN) IV SCH (14:52)
[2024-08-31] VITALS (11 sets, daily range): BP systolic 112–173; BP diastolic 66–94; PULSE 59–85; RESP 14–20; TEMP 97.5–98.5; O2SAT 92–97
[2024-08-31 11:08] LABS: Basophils # (auto) 0 10 ^3/uL (0-0.2); Basophils % (auto) 0.6 % (0.0-2.0); Eosinophils # (auto) 0.1 10 ^3/uL (0-0.8); Eosinophils % (auto) 2.1 % (0.0-7.0); Hematocrit 41.7 % (41.0-53.0); Hemoglobin 14.2 g/dL (13.5-17.5); Lymphocytes # (auto) 1.7 10 ^3/uL (0.4-5.4); Lymphocytes % (auto) 24.7 % (10.0-50.0); Mean Corpuscular Hemoglobin 30.2 pg (28.0-32.0); Mean Corpuscular Volume 88.7 fL (80.0-100.0); Monocytes # (auto) 0.9 10 ^3/uL (0-1.3); Monocytes % (auto) 12.6 % (0.0-12.0); Neutrophils # (auto) 4.1 10 ^3/uL (1.6-8.6); Platelet Count (auto) 231 10^3/uL (140-450); Red Blood Cells 4.71 10^6/uL (4.5-5.90); White Blood Cell 6.8 10^3/uL (4.4-10.8)
[2024-08-31 11:31] LABS: Alkaline Phosphatase 98 U/L (46-116); Anion Gap 6 (5-15); Aspartate Aminotransferase 20 U/L (13-40); Blood Urea Nitrogen 18 mg/dL (9-23); Calcium 9.8 mg/dL (8.7-10.4); Carbon Dioxide 29 mmol/L (20-31); Chloride 101 mmol/L (98-107); Glucose 87 mg/dL (74-106); Potassium 4.1 mmol/L (3.5-5.1)
[2024-08-31 11:32] LABS: Albumin 4.4 g/dL (3.2-4.8); Bilirubin, Total 0.7 mg/dL (0.2-1.0); Total Protein 6.8 g/dL (5.7-8.2)
[2024-08-31 11:35] LABS: Alanine Aminotransferase 44 U/L (7-40); Sodium 136 mmol/L (136-145)
--- NOTE | 2024-08-31 15:00 | DVHPN2 ---
Subjective The patient is seen and examined at bedside. Still complain of shortness for breath. Reviewed: Care Plan, H&P Changes from previous H/P or p: No Changes General: Per HPI Objective Vitals Vital Signs Date Time Temp Pulse Resp B/P (MAP) Pulse Ox O2 Delivery O2 Flow Rate FiO2 08/31/24 08:29 71 16 97 08/31/24 08:23 Nasal Cannula* 2 28 08/31/24 05:00 97.5 173/94 (120) 97.5 Intake/Output Intake and Output 08/31/24 07:00 Intake Total 1100 ml Balance 1100 ml Intake Oral 800 ml IV Total 300 ml # Voids 4 General Appearance: Alert, Cooperative, No acute distress HEENT: Atraumatic, PERRLA, EOMI, Mucous membr. moist/pink Neck: Supple Lungs: Clear to auscultation, Normal air movement Cardiovascular: Regular rate, Normal S1, Normal S2, No murmurs, Gallops, Rubs Abdomen: Normal bowel sounds, Soft, No tenderness Neuro: Cranial nerves 3-12 NL Psych/Mental Status: Mental status NL Medications Current Medications Medications Dose Ordered Sig/Lemuel Route Start Time Stop Time Status Last Admin Dose Admin Ceftriaxone Sodium 50 ml @ 100 mls/hr DAILY@09 IV 08/29/24 09:00 08/31/24 10:54 100 MLS/HR Zinc Sulfate 220 mg DAILY PO 08/29/24 10:00 08/31/24 10:54 220 MG Enoxaparin Sodium 40 mg DAILY SC 08/29/24 10:00 Temazepam 15 mg QHSP PRN PO 08/28/24 20:00 08/30/24 20:27 15 MG Ondansetron HCl 4 mg Q4HP PRN IV 08/28/24 20:00 Acetaminophen 650 mg Q6HP PRN PO 08/28/24 20:00 08/30/24 01:11 650 MG Albuterol 2.5 mg Q6HPRN PRN NEB 08/29/24 03:30 08/29/24 10:50 2.5 MG Guaifenesin/ Dextromethorphan 10 ml Q4HP PRN PO 08/29/24 03:30 08/30/24 20:19 10 ML Azithromycin 250 ml @ 125 mls/hr DAILY IV 08/30/24 10:00 Hold Albuterol 90 mcg TID IN 08/29/24 14:00 08/31/24 14:29 90 MCG Methylprednisolone Sodium Succinate 40 mg DAILY IV 08/30/24 10:00 08/31/24 10:54 40 MG Remdesivir 100 mg/ Sodium Chloride 250 ml @ 250 mls/hr DAILY@1500 IV 08/30/24 15:00 08/31/24 15:59 08/30/24 14:52 250 MLS/HR Laboratory Results Laboratory Tests 08/31/24 11:02 Chemistry Test 08/31/24 11:02 Albumin 4.4 g/dL (3.2-4.8) Calcium Level 9.8 mg/dL (8.7-10.4) Total Protein 6.8 g/dL (5.7-8.2) LFT Test 08/31/24 11:02 Alanine Aminotransferase (ALT) 44 U/L (7-40) H Alkaline Phosphatase 98 U/L (46-116) Aspartate Amino Transferase (AST) 20 U/L (13-40) Total Bilirubin 0.7 mg/dL (0.2-1.0) Urinalysis Test 08/28/24 14:05 Urine Color Yellow (Yellow) Urine Clarity Clear (Clear) Urine pH 7.0 (5.0-9.0) Urine Specific [place] 1.026 (1.001-1.035) Urine Protein Trace (Negative) H Urine Ketones Negative (Negative) Urine Blood Negative /uL (Negative) Urine Nitrite Negative (Negative) Urine Bilirubin Negative (Negative) Urine Urobilinogen Normal mg/dL (Negative) Urine Leukocyte Esterase Negative /uL (Negative) Urine RBC 1 /hpf (0 - 3) Urine Microscopic WBC 1 /HPF (0-3) Urine Squamous Epithelial Cells Few /hpf (<5) Urine Bacteria None seen /hpf (None Seen) Urine Mucus Few (None Seen) Urine Glucose Normal mg/dL (Normal) Labs and/or images reviewed: Labs reviewed by me Assessment/Plan Assessment/Plan Sepsis due to pneumonia Pneumonia, Gram-negative Gram-positive likely COVID-19 infection COVID pneumonia Tachycardia Tachypnea Lactic acidosis Generalized weakness. Plan: Continuing current management. Continuing with oxygen and titrate for saturation oxygen greater than 92%. Continuing with IV antibiotic ceftriaxone and Zithromax. Continuing with remdesivir. Continuing with Solu-Medrol. Continuing with inhaler every 6 hours This medical document was created using an electronic medical record system with [employer] direct computerized dictation system. Although this document has been carefully reviewed, there may still be some phonetic and typographical errors. These areas are purely typographical due to imperfections of the software programs, and do not reflect any compromise in the patient's medical care. Plan discussed with: Patient Date of Service: Aug 31, 2024 Billing Provider: COOKIE HENRIQUEZ MD Common Visit Codes: [id number] INP/OBS CARE(HIGH) COOKIE HENRIQUEZ MD Aug 31, 2024 15:00
[2024-09-01] VITALS (9 sets, daily range): BP systolic 103–106; BP diastolic 63–71; PULSE 60–79; RESP 14–20; TEMP 97.9–98.2; O2SAT 94–98
--- NOTE | 2024-09-01 05:52 | DVH ---
CHEST RADIOGRAPH Indication: Covid-19 pneumonia Technique: Single frontal view of the chest was obtained Comparison: XY CHEST PORTABLE on DOS: 08/29/24, XY CHEST PORTABLE on DOS: 08/28/24, CHEST PORTABLE on DOS : 04/14/22 IMPRESSION: Heart appears normal in size. There is mild pulmonary vascular congestion increased. No sizable effus ion or pneumothorax. Somewhat nodular density in the right mid lung. Attention on follow-up is recom mended.
[2024-09-01 06:14] LABS: Basophils # (auto) 0 10 ^3/uL (0-0.2); Basophils % (auto) 0.4 % (0.0-2.0); Eosinophils # (auto) 0 10 ^3/uL (0-0.8); Eosinophils % (auto) 0.4 % (0.0-7.0); Hemoglobin 14.1 g/dL (13.5-17.5); Lymphocytes # (auto) 1.9 10 ^3/uL (0.4-5.4); Lymphocytes % (auto) 20.8 % (10.0-50.0); Mean Corpuscular Hemoglobin 30.3 pg (28.0-32.0); Mean Corpuscular Hgb Conc. 34.3 g/dL (32.0-36.0); Mean Corpuscular Volume 88.3 fL (80.0-100.0); Monocytes # (auto) 0.9 10 ^3/uL (0-1.3); Monocytes % (auto) 10.1 % (0.0-12.0); Neutrophils # (auto) 6.3 10 ^3/uL (1.6-8.6); Neutrophils % (auto) 68.3 % (37.0-80.0); Platelet Count (auto) 253 10^3/uL (140-450); Red Blood Cells 4.64 10^6/uL (4.5-5.90); Red Cell Distribution Width 13.8 % (11.8-14.3); White Blood Cell 9.2 10^3/uL (4.4-10.8)
[2024-09-01 06:33] LABS: Albumin 4.3 g/dL (3.2-4.8); Alkaline Phosphatase 103 U/L (46-116); Anion Gap 8 (5-15); Aspartate Aminotransferase 26 U/L (13-40); BUN/Creatinine Ratio 22.6 (10.0-20.0); Bilirubin, Total 0.4 mg/dL (0.2-1.0); Blood Urea Nitrogen 19 mg/dL (9-23); Calcium 9.4 mg/dL (8.7-10.4); Carbon Dioxide 26 mmol/L (20-31); Chloride 103 mmol/L (98-107); Potassium 4.3 mmol/L (3.5-5.1); Sodium 137 mmol/L (136-145); Total Protein 6.5 g/dL (5.7-8.2)
[2024-09-01 06:35] LABS: Alanine Aminotransferase 57 U/L (7-40); Glucose 110 mg/dL (74-106)
[2024-09-01 14:07] LABS: COVID19 ANTIGEN SOFIA FIA NEGATIVE (NEGATIVE)
--- NOTE | 2024-09-01 19:18 | DVHPN2 ---
Subjective The patient is seen and examined at bedside. Still complain of shortness for breath. Reviewed: Care Plan, H&P Changes from previous H/P or p: No Changes General: Per HPI Objective Vitals Vital Signs Date Time Temp Pulse Resp B/P (MAP) Pulse Ox O2 Delivery O2 Flow Rate FiO2 09/01/24 14:59 79 16 95 09/01/24 14:53 Nasal Cannula* 2 28 09/01/24 05:00 97.9 105/71 (82) 97.9 Intake/Output Intake and Output 09/01/24 07:00 Intake Total 1150 ml Balance 1150 ml Intake Oral 1100 ml IV Total 50 ml # Voids 6 # Bowel Movements 1 General Appearance: Alert, Cooperative, No acute distress HEENT: Atraumatic, PERRLA, EOMI, Mucous membr. moist/pink Neck: Supple Lungs: Clear to auscultation, Normal air movement Cardiovascular: Regular rate, Normal S1, Normal S2, No murmurs, Gallops, Rubs Abdomen: Normal bowel sounds, Soft, No tenderness Neuro: Cranial nerves 3-12 NL Psych/Mental Status: Mental status NL Medications Current Medications Medications Dose Ordered Sig/Lemuel Route Start Time Stop Time Status Last Admin Dose Admin Ceftriaxone Sodium 50 ml @ 100 mls/hr DAILY@09 IV 08/29/24 09:00 09/01/24 10:42 100 MLS/HR Zinc Sulfate 220 mg DAILY PO 08/29/24 10:00 09/01/24 10:42 220 MG Enoxaparin Sodium 40 mg DAILY SC 08/29/24 10:00 Temazepam 15 mg QHSP PRN PO 08/28/24 20:00 09/01/24 01:34 15 MG Ondansetron HCl 4 mg Q4HP PRN IV 08/28/24 20:00 Acetaminophen 650 mg Q6HP PRN PO 08/28/24 20:00 08/30/24 01:11 650 MG Albuterol 2.5 mg Q6HPRN PRN NEB 08/29/24 03:30 08/29/24 10:50 2.5 MG Guaifenesin/ Dextromethorphan 10 ml Q4HP PRN PO 08/29/24 03:30 09/01/24 01:34 10 ML Azithromycin 250 ml @ 125 mls/hr DAILY IV 08/30/24 10:00 Hold Albuterol 90 mcg TID IN 08/29/24 14:00 09/01/24 14:53 90 MCG Methylprednisolone Sodium Succinate 40 mg DAILY IV 08/30/24 10:00 09/01/24 10:43 40 MG Laboratory Results Laboratory Tests 09/01/24 05:50 Chemistry Test 09/01/24 05:50 Albumin 4.3 g/dL (3.2-4.8) Calcium Level 9.4 mg/dL (8.7-10.4) Total Protein 6.5 g/dL (5.7-8.2) LFT Test 09/01/24 05:50 Alanine Aminotransferase (ALT) 57 U/L (7-40) H Alkaline Phosphatase 103 U/L (46-116) Aspartate Amino Transferase (AST) 26 U/L (13-40) Total Bilirubin 0.4 mg/dL (0.2-1.0) Urinalysis Test 08/28/24 14:05 Urine Color Yellow (Yellow) Urine Clarity Clear (Clear) Urine pH 7.0 (5.0-9.0) Urine Specific [place] 1.026 (1.001-1.035) Urine Protein Trace (Negative) H Urine Ketones Negative (Negative) Urine Blood Negative /uL (Negative) Urine Nitrite Negative (Negative) Urine Bilirubin Negative (Negative) Urine Urobilinogen Normal mg/dL (Negative) Urine Leukocyte Esterase Negative /uL (Negative) Urine RBC 1 /hpf (0 - 3) Urine Microscopic WBC 1 /HPF (0-3) Urine Squamous Epithelial Cells Few /hpf (<5) Urine Bacteria None seen /hpf (None Seen) Urine Mucus Few (None Seen) Urine Glucose Normal mg/dL (Normal) Labs and/or images reviewed: Labs reviewed by me Assessment/Plan Assessment/Plan Sepsis due to pneumonia Pneumonia, Gram-negative Gram-positive likely COVID-19 infection COVID pneumonia Tachycardia Tachypnea Lactic acidosis Generalized weakness. Plan: Continuing current management. Continuing with oxygen and titrate for saturation oxygen greater than 92%. Continuing with IV antibiotic ceftriaxone and Zithromax. Continuing with remdesivir. Continuing with Solu-Medrol. Continuing with inhaler every 6 hours. Discharge planning. This medical document was created using an electronic medical record system with [employer] direct computerized dictation system. Although this document has been carefully reviewed, there may still be some phonetic and typographical errors. These areas are purely typographical due to imperfections of the software programs, and do not reflect any compromise in the patient's medical care. Plan discussed with: Patient Date of Service: Sep 01, 2024 Billing Provider: COOKIE HENRIQUEZ MD Common Visit Codes: [id number] INP/OBS CARE(HIGH) COOKIE HENRIQUEZ MD Sep 01, 2024 19:18
[2024-09-02 01:00] VITALS: BP 100/61; PULSE 69; RESP 20; TEMP 98; O2SAT 96
[2024-09-02 05:00] VITALS: BP 103/67; PULSE 68; RESP 22; TEMP 97.7; O2SAT 98
[2024-09-02 06:54] VITALS: PULSE 62; RESP 16; O2SAT 98
[2024-09-02 09:00] VITALS: BP 108/68; PULSE 64; RESP 17; TEMP 97.8; O2SAT 93
[2024-09-02 09:39] LABS: Basophils # (auto) 0 10 ^3/uL (0-0.2); Basophils % (auto) 0.3 % (0.0-2.0); Eosinophils # (auto) 0.1 10 ^3/uL (0-0.8); Eosinophils % (auto) 0.8 % (0.0-7.0); Hematocrit 41.6 % (41.0-53.0); Lymphocytes # (auto) 2.8 10 ^3/uL (0.4-5.4); Lymphocytes % (auto) 27.6 % (10.0-50.0); Mean Corpuscular Hemoglobin 29.9 pg (28.0-32.0); Mean Corpuscular Hgb Conc. 33.7 g/dL (32.0-36.0); Mean Corpuscular Volume 88.6 fL (80.0-100.0); Monocytes # (auto) 0.8 10 ^3/uL (0-1.3); Monocytes % (auto) 7.5 % (0.0-12.0); Neutrophils # (auto) 6.5 10 ^3/uL (1.6-8.6); Neutrophils % (auto) 63.8 % (37.0-80.0); Platelet Count (auto) 251 10^3/uL (140-450); White Blood Cell 10.2 10^3/uL (4.4-10.8)
[2024-09-02 10:05] LABS: Anion Gap 7 (5-15); Carbon Dioxide 26 mmol/L (20-31); Chloride 104 mmol/L (98-107); Potassium 3.5 mmol/L (3.5-5.1); Sodium 137 mmol/L (136-145)
[2024-09-02 10:06] LABS: Calcium 9.5 mg/dL (8.7-10.4)
[2024-09-02 10:11] LABS: BUN/Creatinine Ratio 24.1 (10.0-20.0); Blood Urea Nitrogen 21 mg/dL (9-23)
[2024-09-02 10:38] LABS: Glucose 121 mg/dL (74-106)
[2024-09-02] MEDS ORDERED: LEVO750T40 PO (10:50)
--- NOTE | 2024-09-02 10:53 | DVHDS2 ---
Discharge Summary Date of Admission Aug 28, 2024 at 19:53 Date of Discharge: Sep 02, 2024 Labs/Diagnostic Data: Laboratory Results Test 09/02/24 09:21 09/01/24 20:03 09/01/24 13:34 09/01/24 05:50 White Blood Count 10.2 10^3/uL (4.4-10.8) Red Blood Count 4.70 10^6/uL (4.5-5.90) Hemoglobin 14.0 g/dL (13.5-17.5) Hematocrit 41.6 % (41.0-53.0) Mean Corpuscular Volume 88.6 fL (80.0-100.0) Mean Corpuscular Hemoglobin 29.9 pg (28.0-32.0) Mean Corpuscular Hemoglobin Concent 33.7 g/dL (32.0-36.0) Red Cell Distribution Width 14.0 % (11.8-14.3) Platelet Count 251 10^3/uL (140-450) Mean Platelet Volume 8.3 fL (6.9-10.8) Neutrophils (%) (Auto) 63.8 % (37.0-80.0) Lymphocytes (%) (Auto) 27.6 % (10.0-50.0) Monocytes (%) (Auto) 7.5 % (0.0-12.0) Eosinophils (%) (Auto) 0.8 % (0.0-7.0) Basophils (%) (Auto) 0.3 % (0.0-2.0) Neutrophils # (Auto) 6.5 10 ^3/uL (1.6-8.6) Lymphocytes # (Auto) 2.8 10 ^3/uL (0.4-5.4) Monocytes # (Auto) 0.8 10 ^3/uL (0-1.3) Eosinophils # (Auto) 0.1 10 ^3/uL (0-0.8) Basophils # (Auto) 0 10 ^3/uL (0-0.2) Nucleated Red Blood Cells 0.0 % Sodium Level 137 mmol/L (136-145) Potassium Level 3.5 mmol/L (3.5-5.1) Chloride Level 104 mmol/L (98-107) Carbon Dioxide Level 26 mmol/L (20-31) Anion Gap 7 (5-15) Blood Urea Nitrogen 21 mg/dL (9-23) Creatinine 0.87 mg/dL (0.700-1.30) Glomerular Filtration Rate Calc 101 mL/min (>90) BUN/Creatinine Ratio 24.1 (10.0-20.0) Serum Glucose 121 mg/dL (74-106) Calcium Level 9.5 mg/dL (8.7-10.4) C-Reactive Protein High Sensitivity 1.03 mg/dL (<1.0) SARS-CoV-2 Antigen (Rapid) Negative (NEGATIVE) Total Bilirubin 0.4 mg/dL (0.2-1.0) Aspartate Amino Transferase (AST) 26 U/L (13-40) Alanine Aminotransferase (ALT) 57 U/L (7-40) Alkaline Phosphatase 103 U/L (46-116) Lactate Dehydrogenase 175 U/L (120-246) Total Protein 6.5 g/dL (5.7-8.2) Albumin 4.3 g/dL (3.2-4.8) Test 08/28/24 22:21 08/28/24 20:20 08/28/24 17:41 08/28/24 14:15 Lactic Acid Level 2.2 mmol/L (0.4-2.0) D-Dimer, Quantitative 0.44 mg/L FEU (0.0-0.49) Vitamin D 25-Hydroxy 21.6 ng/mL (30.0-100) Influenza Type A Antigen Negative (Negative) Influenza Type B Antigen Negative (Negative) Magnesium Level 1.9 mg/dL (1.6-2.6) Test 08/28/24 14:05 Urine Color Yellow (Yellow) Urine Clarity Clear (Clear) Urine pH 7.0 (5.0-9.0) Urine Specific [place] 1.026 (1.001-1.035) Urine Protein Trace (Negative) Urine Ketones Negative (Negative) Urine Blood Negative /uL (Negative) Urine Nitrite Negative (Negative) Urine Bilirubin Negative (Negative) Urine Urobilinogen Normal mg/dL (Negative) Urine Leukocyte Esterase Negative /uL (Negative) Urine RBC 1 /hpf (0 - 3) Urine Microscopic WBC 1 /HPF (0-3) Urine Squamous Epithelial Cells Few /hpf (<5) Urine Bacteria None seen /hpf (None Seen) Urine Mucus Few (None Seen) Urine Glucose Normal mg/dL (Normal) Urine Opiates Screen Neg (NEGATIVE) Urine Fentanyl Screen Neg (NEGATIVE) Urine Barbiturates Screen Neg (NEGATIVE) Urine Phencyclidine Screen Neg (NEGATIVE) Urine Amphetamines Screen Neg (NEGATIVE) Urine Benzodiazepines Screen Neg (NEGATIVE) Urine Cocaine Screen Neg (NEGATIVE) Urine Cannabinoids Screen Neg (NEGATIVE) Other Laboratory Tests 09/02/24 09:21 Brief Hx & Hospital Course: hpi: 59-year-old male presents for evaluation of generalized weakness. Patient reports feeling fatigued with flu-like symptoms including nausea, vomiting, diarrhea. He also reports body aches and intermittent chills. Reports having a nonproductive cough. Reports mild shortness for breath. Denies chest pain or palpitations. hospital course: patient presented with generalized weakness. On exam noted to have tachypnea tachycardia RLL rhonchi. CXR shows mild pulmonary vascular congestion and RML nodular density. UA shows SG 1.026, trace protein, otherwise unremarkable. Labs show leukocytosis and neutrophilia. On workup shows rapid COVID positive. Requiring nasal cannula to maintain saturations. No history of COPD/smoking. admit for acute hypoxic resp failure due to covid pneumonia and comunity acquired pneumonia. No opacities on CXR. started on ceftriaxone/azithro, remdesivir/solumedrol, lovenox ppx and albuterol. patient treated for 3 day remdesivir protocol, started to improve. by 09/02 he is able to wean off oxygen. diagnosis: acute hypoxic respiratory failure due to covid pneumonia; sepsis due to pneumonia; covid 19 infection; pneumonia g-/g+ likely; tachycardia resolved; tachypnea resolved; lactic acidosis resolved; leukocytosis resolved; intravascular volume depletion; dicharge plan: - levofloxacin 750mg daily for x5 days - light activity x1 week. return to normal activity after PCP follow- up/clearance - PCP follow-up to review discharge and check oxygen SpO2 on RA. Condition at Discharge: Fair Final Diagnosis/Problems List acute hypoxic respiratory failure due to covid pneumonia; sepsis due to pneumonia; covid 19 infection; pneumonia g-/g+ likely; tachycardia resolved; tachypnea resolved; lactic acidosis resolved; leukocytosis resolved; intravascular volume depletion; Discharge Disposition: Home Discharge Instruct/Medications Diet: Regular Activity: Light activity Follow Up/Referral: pcp Medications: below Discharge Statement: "Patient was advised to return to the ER or call 911 if any headaches, dizziness, shortness of breath, chest pain, abdominal pain, bleeding, fevers, or worsening of medical condition. Patient was counseled about treatment plan, medications, possible side effects, patientverbalized understanding. All questions were answered to the best of my ability. This discharge took greater then 30 minutes in planning, reviewing documentation, counseling the patient, and discussing with other team members." Date of Service: Sep 02, 2024 Billing Provider: BIBI CAIN MD Common Visit Codes: [id number] DISCH DAY >30min BIBI CAIN MD Sep 02, 2024 10:53
[2024-09-02 12:07] VITALS: BP 108/68; PULSE 64; RESP 17; TEMP 97.8; O2SAT 93
== END 2024-09-02 13:17 | disposition home or self-care (01) | DRG 720 ==
LOC: ER 13:45 → TELE 19:53 → TELE-EAST 08-29 15:32 → TELE-CENTR 08-30 21:23 → CENTRAL 08-31 03:49
PROVIDERS: ADMIT Student in an Organized Health Care Education/Training Program; ATTEND Student in an Organized Health Care Education/Training Program
PROC: XW033E5 Introduction of Remdesivir Anti-infective into Peripheral Vein, Percutaneous Approach, New Technology Group 5 (ICD-10-PCS; principal; 2024-08-29)
DX: A41.89 Other specified sepsis (principal); J96.01 Acute respiratory failure with hypoxia; J12.82 Pneumonia due to coronavirus disease 2019; J15.69 Pneumonia due to other Gram-negative bacteria; U07.1 COVID-19; E87.20 Acidosis, unspecified; J15.9 Unspecified bacterial pneumonia; E86.9 Volume depletion, unspecified; J98.4 Other disorders of lung; J01.10 Acute frontal sinusitis, unspecified; Z79.899 Other long term (current) drug therapy
CPT/HCPCS: 36415; 71045; 80048; 80053; 80307; 81001; 82306; 83605; 83615; 83735; 85025; 85379; 86141; 87426; 87804; 94640; G0378

== ENCOUNTER 2024-09-09 15:55 | Emergency (ER) | payer MEDICAID ==
[~2024-09-09] VITALS: Ht 175.3 cm; Wt 88.4 kg
[~2024-09-09 15:55] MED LIST changes: -CIPR-173 PO; +LEVO750T40 PO; -METR500T PO
--- NOTE | 2024-09-09 16:47 | DVH ---
CHEST RADIOGRAPH Indication: sob Technique: Single frontal view of the chest was obtained Comparison: XY CHEST PORTABLE on DOS: 09/01/24, XY CHEST PORTABLE on DOS: 08/29/24, XY CHEST PORTABLE on DOS: 08/28/24 FINDINGS: Lines and Tubes: None Lungs: No focal consolidation. Pleura: No effusion. No pneumothorax. Cardiomediastinal contours: Unremarkable Bones: No acute osseous abnormality. IMPRESSION: 1. No acute cardiopulmonary disease.
[2024-09-09] MEDS: IPRATROPIUM BROM 0.5 MG/2.5ML INH SOL NEB ONE (16:57)
[2024-09-09] MEDS: ALBUTEROL SULF 2.5 MG/0.5ML(0.5%) NEB SOLN NEB ONE (16:57)
[2024-09-09] MEDS ORDERED: ALBU1.258 IN (18:04)
--- NOTE | 2024-09-09 18:05 | ED.PDOC ---
SOB-HPI HPI Comments 59-year-old male complaining of shortness a breath which was sudden onset while he was at work. States no heavy lifting no trauma. States he was inhaler which did help. He was concerned because he had similar symptoms of this shortness a breath when he had pneumonia last year. Patient denies any fever or coughing recently. Patient does report feeling improvement while being in the emergency department. Chief Complaint: Shortness of Breath Time Seen by MD: 16:26 Primary Care Provider: none Reviewed notes: Nurses Notes Information Source: Patient Mode of Arrival: Ambulatory Severity: Mild Past Medical History PAST MEDICAL HISTORY: Asthma Surgical History: Denies all surgeries Family History Family History: Unknown Social History Smoker: Non-Smoker Alcohol: Denies ETOH Use Drugs: Denies Drug Use Constitutional: denies: chills, diaphoresis, fatigue, fever, malaise, sweats, weakness, others EENTM: denies: blurred vision, double vision, ear bleeding, ear discharge, ear drainage, ear pain, ear ringing, eye pain, eye redness, hearing loss, mouth pain, mouth swelling, nasal discharge, nose bleeding, nose congestion, nose pain, photophobia, tearing, throat pain, throat swelling, voice changes, others Respiratory: reports: SOB at rest; denies: cough, hemoptysis, orthopnea, shortness of breath, SOB with excertion, stridor, wheezing, others Cardiovascular: denies: chest pain, dizzy spells, diaphoresis, Dyspnea on exert ion, edema, irregular heart beat, left arm pain, lightheadedness, palpitations, PND, syncope, others Gastrointestinal: denies: abdomen distended, abdominal pain, blood streaked bowels, constipated, diarrhea, dysphagia, difficulty swallowing, hematemesis, melena, nausea, poor appetite, poor fluid intake, rectal bleeding, rectal pain, vomiting, others Genitourinary: denies: burning, dysuria, flank pain, frequency, hematuria, incontinence, penile discharge, penile sore, pain, testicle pain, testicle swelling, urgency, others Neurological: denies: dizziness, fainting, headache, left sided numbness, left sided weakness, numbness, paresthesia, pre-existing deficit, right sided numbness, right sided weakness, seizure, speech problems, tingling, tremors, weakness, others Musculoskeletal: denies: back pain, gout, joint pain, joint swelling, muscle pain, muscle stiffness, neck pain, others Integumetry: denies: bruises, change in color, change in hair/nails, dryness, laceration, lesions, lumps, rash, wounds, others Physical Exam General Appearance: No Apparent Distress, Normal HEENT: Normal ENT Inspection, Pharynx Normal, TMs Normal Neck: Full Range of Motion, Non-Tender, Normal, Normal Inspection Respiratory: Chest Non-Tender, Lungs Clear, No Accessory Muscle Use, No Respiratory Distress, Normal Breath Sounds Cardiovascular: No Edema, No JVD, No Murmur, No Gallop, Normal Peripheral Pulses, Regular Rate/Rhythm Breast Exam: Deferred Gastrointestinal: No Organomegaly, Non Tender, No Pulsatile Mass, Normal Bowel Sounds, Soft Genitalia: Deferred Pelvic: Deferred Rectal: Deferred Extremities: No calf tenderness, Normal capillary refill, Normal inspection, Normal range of motion, Non-tender, No pedal edema Musculoskeletal : Apperance: Normal Neurologic: Alert, 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 Was a procedure done?: No Differential Dx Differential Diagnosis: Anxiety, Asthma, Bronchitis X-Ray, Labs, Meds, VS Vital Signs Date Time Temp Pulse Resp B/P (MAP) Pulse Ox O2 Delivery O2 Flow Rate FiO2 09/09/24 16:58 16 97 Room Air* 0 21 09/09/24 16:13 19 95 Room Air* 0 21 09/09/24 16:10 97.0 84 19 113/76 (88) 95 Current Medications Medications (Trade) Dose Ordered Sig/Lemuel Route Start Time Stop Time Status Last Admin Albuterol (Ventolin Medneb) 2.5 mg ONCE ONCE NEB 09/09/24 16:45 09/09/24 16:46 DC 09/09/24 16:57 Ipratropium [place] (Atrovent Medneb) 0.5 mg ONCE ONCE NEB 09/09/24 16:45 09/09/24 16:46 DC 09/09/24 16:57 X-Ray, Labs, Meds, VS Comment Imaging: X-rays and CT scans were reviewed and interpreted by this provider, imaging shows no fractures and no pathological disease. Pending radiology review. Laboratory: Labs reviewed and interpreted by this provider. No significant abnormalities noted. Patient has prior medical visits reviewed. Med reconciliation performed Vital signs reviewed Time of 1ST Reevaluation: 18:05 Reevaluation 1ST: Improved Patient Education/Counseling: Diagnosis, Treatment, Need For Follow Up (Patient advised to follow-up in the emergency room in the next 24 to 48 hours if symptoms do not improve. Advised follow-up with PCP in the next 3 to 5 days. Patient verbalized understanding. ) Family Education/Counseling: Diagnosis Departure 1 Departure Time of Disposition: 18:04 Impression: Primary Impression: Bronchospasm Disposition: HOME / SELF CARE / HOMELESS Condition: Fair e-Prescriptions Albuterol Sulfate (Albuterol Sulfate) 1.25 Mg/3 Ml Neb 1.25 MG IN TID PRN, #30 INH Prov: NATE VALENTINE 09/09/24 Discharged With: Self Critical Care Note Critical Care Time?: No Stability Stability form required: No Heart Score Heart Score: Heart Score Response (Comments) Value History N/A 0 EKG N/A 0 Age N/A 0 Risk Factors N/A 0 Troponin N/A 0 Total 0 NATE VALENTINE Sep 09, 2024 18:05
[2024-09-09 18:29] VITALS: BP 122/84; PULSE 70; RESP 16; TEMP 98; O2SAT 96
== END 2024-09-09 18:31 | disposition home or self-care (01) ==
LOC: ER 15:55
DX: J98.01 Acute bronchospasm (principal)
CPT/HCPCS: 71045; 94640

== ENCOUNTER 2025-01-03 14:12 | Inpatient (IN) | payer MEDICAID ==
[~2025-01-03] VITALS: Ht 175.3 cm; Wt 91.7 kg
[~2025-01-03 14:12] MED LIST changes: +ALBU1.258 IN; +ALBUAER3 IN
--- NOTE | 2025-01-03 14:44 | ED.PDOC ---
General HPI Comments 59 y/o M, presents to the ED for CC of flank pain. Patient states, that he has been experiencing RLQ abdominal pain that radiates to his right flank with associated dysuria [id number]. Patient complains of, current 01/30 pain. Patient denies penile discharge, testicular swelling, hematuria, or fever. No other symptoms or modifying factors present at this time. Time Seen by MD: 14:30 Primary Care Provider: none Reviewed notes: Nurses Notes, Medications, Allergies Allergies: Coded Allergies: NO KNOWN ALLERGIES (Unverified , 01/28/16) Home Meds Active Scripts Albuterol Sulfate (VENTOLIN MDI) 90 Mcg Ih, 90 MCG IN QID PRN for 14 Days, #1 INH Prov:TAD MENDOZA MD 09/15/24 Albuterol Sulfate (Albuterol Sulfate) 1.25 Mg/3 Ml Neb, 1.25 MG IN TID PRN, #30 INH Prov:NATE VALENTINE 09/09/24 Levofloxacin Hemihydrate (LEVOFLOXACIN) 750 Mg Tab, 1 TAB PO DAILY, #5 TAB Prov:BIBI CAIN MD 09/02/24 Ondansetron (Zofran) 4 Mg Tab, 4 MG PO BID for 7 Days, #14 MG Prov:PAUL RODRIGEZ MD 04/15/22 Oxycodone W/ Acetaminophen (Percocet 5/325MG) 1 Tab Tb, 1 TAB PO BID for 7 Days, #14 TAB Prov:PAUL RODRIGEZ MD 04/15/22 Information Source: Patient Mode of Arrival: Ambulatory Severity: Moderate Inability to void: None Timing: Months Duration: Since onset Prehospital treatment: None Onset: Spontaneous Symptoms: Dysuria History of: None Location: (R) Flank Penile discharge: None Modifying factors: None associated signs and symptoms: Abdominal Pain, Flank Pain Past Medical History PAST MEDICAL HISTORY: Asthma Surgical History: Denies all surgeries Family History Family History: Unknown Social History Smoker: Non-Smoker Alcohol: Denies ETOH Use Drugs: Denies Drug Use Lives In: Home Constitutional: denies: chills, diaphoresis, fatigue, fever, malaise, sweats, weakness, others EENTM: denies: blurred vision, double vision, ear bleeding, ear discharge, ear drainage, ear pain, ear ringing, eye pain, eye redness, hearing loss, mouth pain, mouth swelling, nasal discharge, nose bleeding, nose congestion, nose pain, photophobia, tearing, throat pain, throat swelling, voice changes, others Respiratory: denies: cough, hemoptysis, orthopnea, SOB at rest, shortness of breath, SOB with excertion, stridor, wheezing, others Cardiovascular: denies: chest pain, dizzy spells, diaphoresis, Dyspnea on exertion, edema, irregular heart beat, left arm pain, lightheadedness, palp itations, PND, syncope, others Gastrointestinal: reports: abdominal pain; denies: abdomen distended, blood streaked bowels, constipated, diarrhea, dysphagia, difficulty swallowing, hematemesis, melena, nausea, poor appetite, poor fluid intake, rectal bleeding, rectal pain, vomiting, others Genitourinary: reports: dysuria, flank pain; denies: burning, frequency, hematuria, incontinence, penile discharge, penile sore, pain, testicle pain, testicle swelling, urgency, others Neurological: denies: dizziness, fainting, headache, left sided numbness, left sided weakness, numbness, paresthesia, pre-existing deficit, right sided numbness, right sided weakness, seizure, speech problems, tingling, tremors, weakness, others Musculoskeletal: denies: back pain, gout, joint pain, joint swelling, muscle pain, muscle stiffness, neck pain, others Integumetry: denies: bruises, change in color, change in hair/nails, dryness, laceration, lesions, lumps, rash, wounds, others Allergic/Immunocompromised: denies: Difficulty Healing, Frequent Infections, Hives, Itching, others Hematologic/Lymphatic: denies: anemia, blood clots, easy bleeding, easy bruising, swollen glands, others Endocrine: denies: excessive hunger, excessive sweating, excessive thirst, excessive urination, flushing, intolerance to cold, intolerance to heat, unexplained weight gain, unexplained weight loss, others Psychiatric: denies: anxiety, bipolar disorder, depression, hopeless, panic disorder, schizophrenia, sleepless, suicidal, others All Other Systems: Reviewed and Negative Physical Exam General Appearance: Moderate Distress HEENT: Normal ENT Inspection, Pharynx Normal, TMs Normal Neck: Full Range of Motion, Non-Tender, Normal, Normal Inspection Respiratory: Chest Non-Tender, Lungs Clear, No Accessory Muscle Use, No Respiratory Distress, Normal Breath Sounds Cardiovascular: No Edema, No JVD, No Murmur, No Gallop, Normal Peripheral Pulses, Regular Rate/Rhythm Breast Exam: Deferred Gastrointestinal: LLQ, No Organomegaly, No Pulsatile Mass, Normal Bowel Sounds, Soft, Tenderness Genitalia: Deferred Pelvic: Deferred Rectal: Deferred Extremities: No calf tenderness, Normal capillary refill, Normal inspection, Normal range of motion, Non-tender, No pedal edema Musculoskeletal : Apperance: Normal Neurologic: Alert, senior 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 Was a procedure done?: No Differential Diagnosis Kidney stone (Female): N/A Kidney stone (Male): Pyelonephritis, Urinary obstruction, Urolithiasis, Urinary tract infection Penile/Scrotal: N/A Urinary Problem (Male): N/A Urinary Problem (Female): N/A X-Ray, Labs, Meds, VS Vital Signs Date Time Temp Pulse Resp B/P (MAP) Pulse Ox O2 Delivery O2 Flow Rate FiO2 01/03/25 15:14 74 16 95 Room Air* 0 21 01/03/25 15:14 98.7 74 18 120/83 (95) 95 98.7 01/03/25 15:08 98.9 73 18 121/79 (93) 100 98.9 Lab Test 01/03/25 15:06 Range/Units Urine Color Yellow Yellow Urine Clarity Clear Clear Urine pH 5.5 5.0-9.0 Urine Specific [place] 1.033 1.001-1.035 Urine Protein Negative Negative Urine Ketones Negative Negative Urine Blood Negative Negative /uL Urine Nitrite Negative Negative Urine Bilirubin Negative Negative Urine Urobilinogen Normal Negative mg/dL Urine Leukocyte Esterase Negative Negative /uL Urine RBC 1 0 - 3 /hpf Urine Microscopic WBC 1 0-3 /HPF Urine Squamous Epithelial Cells Few <5 /hpf Urine Bacteria None seen None Seen /hpf Urine Mucus Few None Seen Urine Glucose Normal Normal mg/dL Current Medications Medications (Trade) Dose Ordered Sig/Lemuel Route Start Time Stop Time Status Last Admin Sodium Chloride 1,000 ml @ 1,000 mls/hr Q1H ONCE IVB 01/03/25 14:45 01/03/25 15:44 01/03/25 15:19 Ketorolac Tromethamine (Toradol Injection) 30 mg ONCE ONCE IV 01/03/25 14:45 01/03/25 14:46 DC 01/03/25 15:19 CAT scan of the abdomen and pelvis shows: IMPRESSION: 1. No hydronephrosis/nephrolithiasis. 2. Congenitally malrotated right kidney. 3. Hepatic steatosis, hepatomegaly. 4. Colonic diverticular disease. 5. Prostatomegaly. IV Hep-Lock was established The patient was given 1 L bolus of normal saline The patient was given ketorolac 30 mg IV push The urine test is negative for infection At this time, the patient is being discharged and will follow up with the primary care doctor The patient will return to the emergency department's the condition worsens. Images Reviewed?: Images reviewed and evaluated by me Time of 1ST Reevaluation: 15:00 Reevaluation 1ST: Unchanged Patient Education/Counseling: Diagnosis, Treatment, Prognosis Family Education/Counseling: No Family Present Departure 1 Departure Time of Disposition: 15:44 Impression: Primary Impression: Abdominal pain of unknown etiology Disposition: ADMITTED INPATIENT Admit to: Med Surg Condition: Fair Critical Care Note Critical Care Time?: No Stability Stability form required: Yes Unstable for transfer: ED Physician Assesment (Clinical assesment) Heart Score Heart Score: Heart Score Response (Comments) Value History N/A 0 EKG N/A 0 Age N/A 0 Risk Factors N/A 0 Troponin N/A 0 Total 0 I personally scribed for SABRINA MCKEON MD ([email or web address]) on 01/03/25 at 14:44. Electronically submitted by Emily Mcclain ([email or web address]). SABRINA MCKEON MD Jan 03, 2025 14:44
[2025-01-03 15:14] VITALS: PULSE 74; RESP 16; O2SAT 95
[2025-01-03] MEDS: SODIUM CHLORIDE 0.9% 1,000 ML IVB ONE (15:19)
[2025-01-03] MEDS: KETOROLAC TROMETH 30 MG/ML 1ML VIAL IV ONE (15:19)
[2025-01-03 15:22] LABS: Urine Bacteria None Seen /hpf (None Seen)
--- NOTE | 2025-01-03 15:26 | DVH ---
Indication: left flank pain Technique: CT axial images of the abdomen and pelvis are obtained without contrast. Coronal and sagit cliff reformats were obtained. Radiation Dose Information: CTDI volume is 10 mGy. Dose-length product is 572 mGy*cm Comparison: CT ABD PELVIS WO CONTRAST on DOS: 04/14/22 FINDINGS: There is limited interpretation of the abdomen and pelvis without administration of intravenous contr ast. Lung bases demonstrate no pleural effusion. Adrenal glands, spleen, pancreas unremarkable in shape. Hepatomegaly, hepatic steatosis. No CT evid ence for cholelithiasis. Malrotated right kidney. No right hydronephrosis. Left kidney demonstrates no hydronephrosis / nephro lithiasis. Stomach partially distended. Small bowel loops are normal in caliber. Colonic diverticular disease. Moderate volume stool in the colon. Normal appendix. Atherosclerotic disease. Bladder partially distended. Prostate measures 5.3 cm transversely. No ingu inal lymphadenopathy. Fat containing left inguinal hernia. Moderate bilateral sacroiliac degenerative joint disease. Moderate lumbar degenerative disc disease m ost pronounced at L4-5 and L5-S1. IMPRESSION: 1. No hydronephrosis/nephrolithiasis. 2. Congenitally malrotated right kidney. 3. Hepatic steatosis, hepatomegaly. 4. Colonic diverticular disease. 5. Prostatomegaly. 6. Other findings as described.
[2025-01-03 15:35] LABS: Urine Blood Negative /uL (Negative); Urine Clarity Clear (Clear); Urine Color Yellow (Yellow); Urine Mucus FEW (None Seen); Urine Protein, UAD Negative (Negative); Urine Specific Gravity 1.033 (1.001-1.035); Urine Squamous Epithelial Cell FEW /hpf (<5); Urine Urobilinogen Normal (Negative); Urine WBC 1 /HPF (0-3); Urine pH 5.5 (5.0-9.0)
[2025-01-03 19:49] VITALS: TEMP 98
[2025-01-03] MEDS ORDERED: MORPHINE SULFATE INJ 2 MG/ml SYRG IV PRN ×2 (20:30)
[2025-01-03] MEDS ORDERED: NITROGLYCERIN 0.4 MG SL TAB SL PRN (20:30)
[2025-01-03] MEDS ORDERED: ONDANSETRON HCL 4 MG/2 ML VIAL IV PRN (20:30)
[2025-01-03] MEDS ORDERED: ALBUTEROL SULF 2.5 MG/0.5ML(0.5%) NEB SOLN NEB PRN (20:30)
[2025-01-03] MEDS: SODIUM CHLORIDE 0.9% 1,000 ML IV SCH (20:30)
[2025-01-03 21:08] LABS: Basophils # (auto) 0 10 ^3/uL (0-0.2); Basophils % (auto) 0.5 % (0.0-2.0); Eosinophils # (auto) 0.1 10 ^3/uL (0-0.8); Eosinophils % (auto) 2.5 % (0.0-7.0); Hematocrit 42.1 % (41.0-53.0); Hemoglobin 14.2 g/dL (13.5-17.5); Lymphocytes # (auto) 1.9 10 ^3/uL (0.4-5.4); Lymphocytes % (auto) 35.9 % (10.0-50.0); Mean Corpuscular Hemoglobin 29.7 pg (28.0-32.0); Mean Corpuscular Hgb Conc. 33.8 g/dL (32.0-36.0); Mean Corpuscular Volume 88.1 fL (80.0-100.0); Monocytes # (auto) 0.5 10 ^3/uL (0-1.3); Monocytes % (auto) 9.5 % (0.0-12.0); Neutrophils # (auto) 2.8 10 ^3/uL (1.6-8.6); Neutrophils % (auto) 51.6 % (37.0-80.0); Nucleated Red Blood Cells % 0.1 %; Platelet Count (auto) 209 10^3/uL (140-450); Red Blood Cells 4.78 10^6/uL (4.5-5.90); Red Cell Distribution Width 13.5 % (11.8-14.3); White Blood Cell 5.4 10^3/uL (4.4-10.8)
--- NOTE | 2025-01-03 21:11 | DVH ---
INDICATION: recurrent renal colicky pain, rule out obstruction TECHNIQUE: Multiple real-time sonographic images of the kidneys and bladder were obtained. COMPARISON: None FINDINGS: The right kidney measures 11.4 cm in length, which is normal in size. There is normal echogenicity o f the right kidney. No hydronephrosis. The left kidney measures 11.1 cm in length, which is normal in size. There is normal echogenicity of the left kidney. No hydronephrosis. Urinary bladder is unremarkable with urinary bladder volume of 127 cc. Incidental finding of enlarged heterogeneous prostate with prostatic volume of 49 cc. IMPRESSION: No hydronephrosis or renal calculi bilaterally. Urinary bladder is unremarkable. Enlarged heterogeneous prostate. Recommend correlation with PSA.
[2025-01-03 21:30] VITALS: O2SAT 95
[2025-01-03 21:30] LABS: Amphetamine Screen, Urine Neg (NEGATIVE); Barbiturate Scree,Urine Neg (NEGATIVE); Benzodiazephine Screen, Urine Neg (NEGATIVE); Cannabinoid Screen, Urine Neg (NEGATIVE); Cocaine Screen, Urine Neg (NEGATIVE); Opiate Scree,Urine Neg (NEGATIVE); Phencyclidine Screen, Urine Neg (NEGATIVE)
[2025-01-03 21:33] LABS: Alanine Aminotransferase 42 U/L (7-40); Albumin 4.3 g/dL (3.2-4.8); Alkaline Phosphatase 96 U/L (46-116); Anion Gap 9 (5-15); Aspartate Aminotransferase 35 U/L (<34); BUN/Creatinine Ratio 22.2 (10.0-20.0); Bilirubin, Total 0.7 mg/dL (0.2-1.0); Blood Alcohol < 3.0 mg/dL (<10); Blood Urea Nitrogen 22 mg/dL (9-23); Calcium 9.5 mg/dL (8.7-10.4); Carbon Dioxide 28 mmol/L (20-31); Chloride 106 mmol/L (98-107); Glucose 166 mg/dL (74-106); Potassium 3.7 mmol/L (3.5-5.1); Sodium 143 mmol/L (136-145); Total Protein 6.7 g/dL (5.7-8.2)
[2025-01-03 21:38] LABS: Lactic Acid w/Reflex 2.1 mmol/L (0.4-2.0)
[2025-01-03 21:45] LABS: Lipase 42 U/L (12-53)
[2025-01-03 21:48] VITALS: BP 117/61; PULSE 78; RESP 16; O2SAT 95
[2025-01-03] MEDS: SODIUM CHLORIDE 0.9% 1,000 ML IV ONE (22:39)
[2025-01-03] MEDS: metroNIDAZOLE 500MG/100ML 100 ML IV SCH (22:41)
[2025-01-03] MEDS: CIPROFLOXACIN 400MG/200ML 200 ML IV SCH (23:58)
--- NOTE | 2025-01-04 00:55 | DVHHPRES ---
History of Present Illness Resident Creating Document: QI NAZARIO RESIDENT History of Present Illness Mr. Holt, a 59-year-old male presents to the ED with right lower quadrant abdominal pain radiating to the right flank, ongoing for one month and currently rated 7/10 in severity. The pain is associated with dysuria but without hematuria, penile discharge, testicular swelling, fever, or other modifying factors. The onset was spontaneous, with no prehospital treatment. He arrived ambulatory and reports no difficulty voiding. His past medical history includes asthma, and he denies any prior surgeries. Past Medical History Childhood asthma Past Surgical History: None Past Surgical History none Family History: None Family History non contributory Smoke: No ALCOHOL: none Drugs: None Lives: with Family Domestic Violence: Neg Review of Systems Constitutional: Yes: Sweats, Malaise; No: Fever, Chills, Weakness, Other Eyes: No: Pain, Vision change, Conjunctivae inflammation, Eyelid inflammation, Other, Redness ENT: No: Ear pain, Ear discharge, Nose pain, Nose discharge, Nose congestion, Mouth pain, Mouth swelling, Throat pain, Throat swelling, Other Respiratory: No: Cough, Dry, Shortness of breath, SOB with excertion, Wheezing, Hemoptysis, Pleuritic Pain, Sputum, Wheezing, Other Cardiovascular: No: Chest Pain, Palpitations, Orthopnea, Paroxysmal Noc. Dyspnea, Edema, Lt Headedness, Other Gastrointestinal: Nausea, Abdominal Pain, Diarrhea, Constipation, Other; No: Vomiting, Melena, Hematochezia Genitourinary: Dysuria, Frequency; No Incontinence, No Hematuria, No Retention; Other (no local lesions, ) Musculoskeletal: No: other, neck pain, shoulder pain, arm pain, back pain, hand pain, leg pain, foot pain Skin: No: Rash, Lesions, Jaundice, Bruising, Other Neurological: No: Weakness, Numbness, Incoordination, Change in speech, Confusion, Seizures, Other Allergies: Coded Allergies: NO KNOWN ALLERGIES (Unverified , 01/28/16) Medications Current Medications Medications Dose Ordered Sig/Lemuel Route Start Time Stop Time Status Last Admin Dose Admin Sodium Chloride 1,000 ml @ 120 mls/hr Q8H20M IV 01/03/25 20:30 Ondansetron HCl 4 mg Q4HP PRN IV 01/03/25 20:30 Morphine Sulfate 2 mg Q4HPRN PRN IV 01/03/25 20:30 Nitroglycerin 0.4 mg Q5MINP PRN SL 01/03/25 20:30 Morphine Sulfate 2 mg Q30M PRN IV 01/03/25 20:30 Albuterol 1.25 mg Q6HWA PRN NEB 01/03/25 20:30 Tamsulosin HCl 0.4 mg QPM PO 01/04/25 18:00 Ciprofloxacin 200 ml @ 200 mls/hr Q8HR IV 01/03/25 22:15 01/03/25 23:58 200 MLS/HR Metronidazole 100 ml @ 100 mls/hr Q8HR IV 01/03/25 22:15 01/03/25 22:41 100 MLS/HR Finasteride 5 mg DAILY PO 01/04/25 10:00 Exam Vital Signs Vital Signs Date Time Temp Pulse Resp B/P (MAP) Pulse Ox O2 Delivery O2 Flow Rate FiO2 01/03/25 21:48 78 16 117/61 95 0.0 21 01/03/25 19:49 98.0 98.0 01/03/25 15:14 Room Air* General Appearance: Alert, Oriented X3, Cooperative, mild distress HEENT: Atraumatic, PERRLA, EOMI, Mucous membr. moist/pink Respiratory: Clear to auscultation, Normal air movement Cardiovascular: Regular rate, Normal S1, Normal S2, No murmurs, Gallops, Rubs, Other Abdominal: Normal bowel sounds, Soft, Other (RLQ tenderness, no rovsing, mc felicita's or cva angle tenderness. ) Extremities: No clubbing, No cyanosis, No edema, Normal pulses, No tenderness/swelling Skin: No rashes, No breakdown, No significant lesion Neuro: Normal gait, Normal speech, Strength at 5/5 X4 ext, Normal tone, Sensation intact, Cranial nerves 3-12 NL, Reflexes 2+, Other Psych/Mental Status: Mental status NL, Mood NL, Other Labs/Xrays Labs Test 01/03/25 22:42 01/03/25 20:42 01/03/25 15:06 Range/Units Lactic Acid Level 1.4 0.4-2.0 mmol/L White Blood Count 5.4 4.4-10.8 10^3/uL Red Blood Count 4.78 4.5-5.90 10^6/uL Hemoglobin 14.2 13.5-17.5 g/dL Hematocrit 42.1 41.0-53.0 % Mean Corpuscular Volume 88.1 80.0-100.0 fL Mean Corpuscular Hemoglobin 29.7 28.0-32.0 pg Mean Corpuscular Hemoglobin Concent 33.8 32.0-36.0 g/dL Red Cell Distribution Width 13.5 11.8-14.3 % Platelet Count 209 140-450 10^3/uL Mean Platelet Volume 8.8 6.9-10.8 fL Neutrophils (%) (Auto) 51.6 37.0-80.0 % Lymphocytes (%) (Auto) 35.9 10.0-50.0 % Monocytes (%) (Auto) 9.5 0.0-12.0 % Eosinophils (%) (Auto) 2.5 0.0-7.0 % Basophils (%) (Auto) 0.5 0.0-2.0 % Neutrophils # (Auto) 2.8 1.6-8.6 10 ^3/uL Lymphocytes # (Auto) 1.9 0.4-5.4 10 ^3/uL Monocytes # (Auto) 0.5 0-1.3 10 ^3/uL Eosinophils # (Auto) 0.1 0-0.8 10 ^3/uL Basophils # (Auto) 0 0-0.2 10 ^3/uL Nucleated Red Blood Cells 0.1 % Sodium Level 143 136-145 mmol/L Potassium Level 3.7 3.5-5.1 mmol/L Chloride Level 106 98-107 mmol/L Carbon Dioxide Level 28 20-31 mmol/L Anion Gap 9 5-15 Blood Urea Nitrogen 22 9-23 mg/dL Creatinine 0.99 0.700-1.30 mg/dL Glomerular Filtration Rate Calc 89 >90 mL/min BUN/Creatinine Ratio 22.2 H 10.0-20.0 Serum Glucose 166 H 74-106 mg/dL Calcium Level 9.5 8.7-10.4 mg/dL Total Bilirubin 0.7 0.2-1.0 mg/dL Aspartate Amino Transferase (AST) 35 H <34 U/L Alanine Aminotransferase (ALT) 42 H 7-40 U/L Alkaline Phosphatase 96 46-116 U/L Total Protein 6.7 5.7-8.2 g/dL Albumin 4.3 3.2-4.8 g/dL Lipase 42 12-53 U/L Thyroid Stimulating Hormone (TSH) 0.68 0.55-4.78 uIU/mL Plasma/Serum Blood Alcohol < 3.0 <10 mg/dL Urine Color Yellow Yellow Urine Clarity Clear Clear Urine pH 5.5 5.0-9.0 Urine Specific [place] 1.033 1.001-1.035 Urine Protein Negative Negative Urine Ketones Negative Negative Urine Blood Negative Negative /uL Urine Nitrite Negative Negative Urine Bilirubin Negative Negative Urine Urobilinogen Normal Negative mg/dL Urine Leukocyte Esterase Negative Negative /uL Urine RBC 1 0 - 3 /hpf Urine Microscopic WBC 1 0-3 /HPF Urine Squamous Epithelial Cells Few <5 /hpf Urine Bacteria None seen None Seen /hpf Urine Mucus Few None Seen Urine Glucose Normal Normal mg/dL Urine Opiates Screen Neg NEGATIVE Urine Fentanyl Screen Neg NEGATIVE Urine Barbiturates Screen Neg NEGATIVE Urine Phencyclidine Screen Neg NEGATIVE Urine Amphetamines Screen Neg NEGATIVE Urine Benzodiazepines Screen Neg NEGATIVE Urine Cocaine Screen Neg NEGATIVE Urine Cannabinoids Screen Neg NEGATIVE Assessment/Plan Assessment/Plan # A chief complaint of left-sided flank pain and dysuria, both ongoing for one month, stool panel pending, UTI, STI, IBD, inflammatory disease, possible, esr crp, sherry added. rarely COVID related manifestation might be contributary # likely uncomplicated diverticulitis: due to comparatively poor quality of CT abdomen without contrast possibility of Visually discrete lesion. # hydronephrosis, renal calculi or urogenital pathology ruled out # Hemodynamically stable, Afebrile, in room air unlabored. CBC unremarkable, # lactic acidosis, infection, severe dehydration, secondary to underlying pathology versus iatrogenic trended down. # Mild transaminitis, otherwise abdominal examination unremarkable, lipase negative Likely due to fatty liver # Hepatic steatosis, moderate weight loss, lifestyle modification and dietary modification discussed bedside. # Congenitally malrotated right kidney, a normal variety renal function unremarkable. UA unremarkable. # Hepatic steatosis, mild hepatomegaly. # Colonic diverticular disease, avoid constipation, high-fiber diet to continue. # Significant prostatomegaly: CT abdomen: Bladder partially distended. Prostate measures 5.3 cm transversely. No inguinal lymphadenopathy. # Congenitally malrotated right kidney. # CT abdomen: extensive atherosclerotic disease, check ASCVD score # Enlarged 'heterogeneous prostate' with prostatic volume of 49 cc: PSA pending. Urine culture, blood culture, STI workup pending for broad differentials, if workup negative we will start the patient on finasteride along with tamsulosin 0.4 mg daily. # Possibility of acute versus chronic prostatitis, yet to rule out : Needs further close follow up as the treatment needs longer follow up # Known asthma, recent bronchospasm and further shortness of breaths in post COVID phase, as needed albuterol, breathing comfortably in room air for now. # Appendicitis unlikely, physical examination unremarkable : Negative for Rovsing / benign abdominal examination with absent local tenderness. # Poor medical follow up, at discharge patient needs to establish care with a new PCP and close follow up for preventative healthcare. PCP: ELOINA Case discussed with Dr. Sharpe. Code Status: Full Code, goals of care discussion along with plan of care 33 minutes bedside. Patient admitted in hospital for further workup and management. Agreeable to the plan. Plan discussed with: Patient My Orders Orders - QI NAZARIO RESIDENT Procedure Category Date Status Time Admit ADMIT 01/03/25 Transmitted 20:25 Allergies CARSON 01/03/25 In Process 20:25 Code Status CODE 01/03/25 Transmitted 20:25 Sodium Chloride 0.9% PHA 01/03/25 In Process 20:30 Ondansetron Hcl PHA 01/03/25 In Process (Zofran) 20:30 Complete Blood Count LAB 01/04/25 Logged 04:00 Comprehensive LAB 01/04/25 Logged Metabolic Panel 04:00 Npo (Nothing By DIET 01/04/25 Transmitted Mouth) Diet Breakfast Condition: Fair CARSON 01/03/25 In Process 20:25 Morphine Sulfate PHA 01/03/25 In Process Injection 20:30 Sequential CARSON 01/03/25 In Process Compression Device Nitroglycerin PHA 01/03/25 In Process Sublingual (Ntrostat 20:30 Morphine Sulfate PHA 01/03/25 In Process Injection 20:30 Oxygen By Nasal RT 01/03/25 Transmitted Cannula 20:25 Stat Ekg For Chest CARSON 01/03/25 In Process Pain 20:25 Notify Of Changes CARSON 01/03/25 In Process From Base 20:25 Mold Closer For CARSON 01/03/25 In Process 24 Hours 20:25 Emergency Dysrhythmia CARSON 01/03/25 In Process Protocol 20:25 Rhythm Strips Once CARSON 01/03/25 In Process Every Shift 20:25 Albuterol Medneb PHA 01/03/25 In Process (Ventolin Medneb) 20:30 Kidney US 01/03/25 Resulted 20:30 Urine Bacterial CHRISS 01/03/25 In Process Culture 20:34 Tamsulosin PHA 01/04/25 In Process Hydrochloride (Flomax) 18:00 Psa Total+% Free LAB 01/03/25 In Process 20:35 Lactic Acid W/ Reflex LAB 01/04/25 Logged Order 04:00 Ciprofloxacin PHA 01/03/25 In Process 400mg/200ml (Cipro Iv) 22:15 Metronidazole PHA 01/03/25 In Process 500mg/100ml (Flagyl 22:15 Clostridium Difficile CHRISS 01/03/25 Logged Toxin 22:09 Ova & Parasite Exam CHRISS 01/03/25 Logged 22:09 Stool Bacterial CHRISS 01/03/25 Logged Culture 22:09 Stool Occult Blood LAB 01/03/25 Logged 22:09 Stool Wbc LAB 01/03/25 Logged 22:09 Finasteride Tablet PHA 01/04/25 In Process (Proscar Tablet) 10:00 Chlamydia/Gc LAB 01/04/25 Logged Amplification 00:26 Blood Culture CHRISS 01/04/25 Logged 00:33 Date of Service: Jan 03, 2025 Billing Provider: QI NAZARIO Common Visit Codes: [id number] INP/OBS CARE (HIGH) Secondary Visit Codes: [id number] CARE PLAN 30 MINUTES QI NAZARIO Jan 04, 2025 00:55
[2025-01-04] MEDS ORDERED: FINASTERIDE 5 MG TAB PO SCH (10:00)
[2025-01-04] MEDS ORDERED: TAMSULOSIN HYDROCHLORIDE 0.4 MG CAP PO SCH (18:00)
[2025-01-05 08:06] LABS: PSA Free 0.28 ng/mL; Prostate Specific Antigen 1.9 ng/mL (0.0-4.0)
[2025-01-06 17:07] LABS: Chlamydia Trachomatis, NAA Negative (Negative); Neisseria gonorrhoeae, NAA Negative (Negative)
== END 2025-01-04 04:32 | disposition left against medical advice (07) | DRG 244 ==
LOC: ER 14:20 → OVERFLOW 20:25
PROVIDERS: ATTEND Emergency Medicine
DX: K57.30 Diverticulosis of large intestine without perforation or abscess without bleeding (principal); E87.20 Acidosis, unspecified; K76.0 Fatty (change of) liver, not elsewhere classified; R16.0 Hepatomegaly, not elsewhere classified; J45.909 Unspecified asthma, uncomplicated; E86.0 Dehydration; N40.0 Benign prostatic hyperplasia without lower urinary tract symptoms; N41.1 Chronic prostatitis; N41.0 Acute prostatitis; Q63.2 Ectopic kidney; R74.01 Elevation of levels of liver transaminase levels; Z53.29 Procedure and treatment not carried out because of patient's decision for other reasons
CPT/HCPCS: 36415; 74176; 76775; 80053; 80307; 80320; 81001; 83605; 83690; 84154; 84443; 85025; 87040; 87086; 96361; 96374; G0378; J1885; J3490

== ENCOUNTER 2025-06-30 09:05 | Inpatient (IN) | payer MEDICAID ==
[~2025-06-30] VITALS: Ht 175.3 cm; Wt 92.3 kg
--- NOTE | 2025-06-30 09:12 | ECG ---
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
[2025-06-30 09:40] LABS: Hematocrit 42.8 % (41.0-53.0); Hemoglobin 14.4 g/dL (13.5-17.5); Mean Corpuscular Hemoglobin 29.6 pg (28.0-32.0); Mean Corpuscular Volume 88.0 fL (80.0-100.0); Nucleated Red Blood Cells % 0.1 %
[2025-06-30 09:48] LABS: Chloride 104 mmol/L (98-107); Potassium 3.8 mmol/L (3.5-5.1); Sodium 141 mmol/L (136-145)
[2025-06-30 09:49] LABS: Anion Gap 8 (5-15); Carbon Dioxide 29 mmol/L (20-31)
[2025-06-30 09:50] LABS: Calcium 9.0 mg/dL (8.7-10.4)
[2025-06-30 09:54] LABS: Glucose 98 mg/dL (74-106)
[2025-06-30 09:55] LABS: BUN/Creatinine Ratio 19.5 (10.0-20.0); Blood Urea Nitrogen 16 mg/dL (9-23)
--- NOTE | 2025-06-30 10:05 | ED.PDOC ---
HPI Comments 60 year old male presents to the ED with a chief complaint of chest pain onset 3 days. Patient states he has been experiencing constant, non radiating, sharp, chest pain for the past 3 days as well as intermittent palpitations. Patient noticed symptoms worsened this morning, came to ED. Denies fever, chills, sore throat, dizziness, shortness of breath, weakness, numbness/tingling, nausea, vomiting, diarrhea, headache. No other symptoms or modifying factors present at this time. Chief Complaint: Chest Pain Time Seen by MD: 09:55 Primary Care Provider: none Reviewed Notes: Medications, Allergies Allergies: Coded Allergies: NO KNOWN ALLERGIES (Unverified , 01/28/16) Home Meds Active Scripts Albuterol Sulfate (VENTOLIN MDI) 90 Mcg Ih, 90 MCG IN QID PRN for 14 Days, #1 INH Prov:TAD MENDOZA MD 09/15/24 Albuterol Sulfate (Albuterol Sulfate) 1.25 Mg/3 Ml Neb, 1.25 MG IN TID PRN, #30 INH Prov:NATE AMIN 09/09/24 Levofloxacin Hemihydrate (LEVOFLOXACIN) 750 Mg Tab, 1 TAB PO DAILY, #5 TAB Prov:BIBI CAIN MD 09/02/24 Ondansetron (Zofran) 4 Mg Tab, 4 MG PO BID for 7 Days, #14 MG Prov:PAUL RODRIGEZ MD 04/15/22 Oxycodone W/ Acetaminophen (Percocet 5/325MG) 1 Tab Tb, 1 TAB PO BID for 7 Days, #14 TAB Prov:PAUL RODRIGEZ MD 04/15/22 Information Source: Patient Mode of Arrival: Ambulatory Severity: Moderate Timing: Days Duration: Since onset Prehospital treatment: None Location: Chest (L) Radiation: No Radiation Quality: Sharp Onset: At Rest Cardiac Risk Factors: None PE Risk Factors: None History of: None Modifying Factors: Nothing Associated Signs and Symptoms: Palpitations Past Medical History PAST MEDICAL HISTORY: Asthma Surgical History: Denies all surgeries Family History Family History: Unknown Social History Smoker: Non-Smoker Alcohol: Denies ETOH Use Drugs: Denies Drug Use Lives In: Home Constitutional: denies: chills, diaphoresis, fatigue, fever, malaise, sweats, weakness, others EENTM: denies: blurred vision, double vision, ear bleeding, ear discharge, ear drainage, ear pain, ear ringing, eye pain, eye redness, hearing loss, mouth pain, mouth swelling, nasal discharge, nose bleeding, nose congestion, nose pain, photophobia, tearing, throat pain, throat swelling, voice changes, others Respiratory: denies: cough, hemoptysis, orthopnea, SOB at rest, shortness of breath, SOB with excertion, stridor, wheezing, others Cardiovascular: reports: chest pain, palpitations; denies: dizzy spells, diaphoresis, Dyspnea on exertion, edema, irregular heart beat, left arm pain, lightheadedness, PND, syncope, others Gastrointestinal: denies: abdomen distended, abdominal pain, blood streaked bowels, constipated, diarrhea, dysphagia, difficulty swallowing, hematemesis, melena, nausea, poor appetite, poor fluid intake, rectal bleeding, rectal pain, vomiting, others Genitourinary: denies: burning, dysuria, flank pain, frequency, hematuria, incontinence, penile discharge, penile sore, pain, testicle pain, testicle swelling, urgency, others Neurological: denies: dizziness, fainting, headache, left sided numbness, left sided weakness, numbness, paresthesia, pre-existing deficit, right sided num bness, right sided weakness, seizure, speech problems, tingling, tremors, weakness, others Musculoskeletal: denies: back pain, gout, joint pain, joint swelling, muscle pain, muscle stiffness, neck pain, others Integumetry: denies: bruises, change in color, change in hair/nails, dryness, laceration, lesions, lumps, rash, wounds, others Allergic/Immunocompromised: denies: Difficulty Healing, Frequent Infections, Hives, Itching, others Hematologic/Lymphatic: denies: anemia, blood clots, easy bleeding, easy bruising, swollen glands, others Endocrine: denies: excessive hunger, excessive sweating, excessive thirst, excessive urination, flushing, intolerance to cold, intolerance to heat, unexplained weight gain, unexplained weight loss, others Psychiatric: denies: anxiety, bipolar disorder, depression, hopeless, panic disorder, schizophrenia, sleepless, suicidal, others All Other Systems: Reviewed and Negative Physical Exam General Appearance: Normal HEENT: Normal ENT Inspection, Pharynx Normal, TMs Normal Neck: Full Range of Motion, Non-Tender, Normal, Normal Inspection Respiratory: Chest Non-Tender, Lungs Clear, No Accessory Muscle Use, No R espiratory Distress, Normal Breath Sounds Cardiovascular: No Edema, No JVD, No Murmur, No Gallop, Normal Peripheral Pulses, Regular Rate/Rhythm Breast Exam: Deferred Gastrointestinal: No Organomegaly, Non Tender, No Pulsatile Mass, Normal Bowel Sounds, Soft Genitalia: Deferred Pelvic: Deferred Rectal: Deferred Extremities: No calf tenderness, Normal capillary refill, Normal inspection, Normal range of motion, Non-tender, No pedal edema Musculoskeletal : Apperance: Normal Neurologic: Alert, manager convention II-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 Was a procedure done?: No CP Differential Dx Differential Diagnosis: MS Differential Diagnosis: HTN Essential, HTN Accelerated Differential Diagnosis: Chest Wall Pain X-Ray, Labs, Meds, VS Vital Signs Date Time Temp Pulse Resp B/P (MAP) Pulse Ox O2 Delivery O2 Flow Rate FiO2 06/30/25 11:50 97.8 69 14 138/85 (102) 95 97.8 06/30/25 10:40 62 06/30/25 09:10 98.1 57 16 122/78 95 98.1 06/30/25 09:10 56 Lab Test 06/30/25 11:08 06/30/25 09:18 Range/Units Troponin I High Sensitivity < 3 L 4 </=54 ng/L White Blood Count 6.3 4.4-10.8 10^3/uL Red Blood Count 4.86 4.5-5.90 10^6/uL Hemoglobin 14.4 13.5-17.5 g/dL Hematocrit 42.8 41.0-53.0 % Mean Corpuscular Volume 88.0 80.0-100.0 fL Mean Corpuscular Hemoglobin 29.6 28.0-32.0 pg Mean Corpuscular Hemoglobin Concent 33.6 32.0-36.0 g/dL Red Cell Distribution Width 14.1 11.8-14.3 % Platelet Count 223 140-450 10^3/uL Mean Platelet Volume 9.0 6.9-10.8 fL Neutrophils (%) (Auto) 50.3 37.0-80.0 % Lymphocytes (%) (Auto) 35.4 10.0-50.0 % Monocytes (%) (Auto) 9.9 0.0-12.0 % Eosinophils (%) (Auto) 3.9 0.0-7.0 % Basophils (%) (Auto) 0.5 0.0-2.0 % Neutrophils # (Auto) 3.2 1.6-8.6 10 ^3/uL Lymphocytes # (Auto) 2.2 0.4-5.4 10 ^3/uL Monocytes # (Auto) 0.6 0-1.3 10 ^3/uL Eosinophils # (Auto) 0.2 0-0.8 10 ^3/uL Basophils # (Auto) 0 0-0.2 10 ^3/uL Nucleated Red Blood Cells 0.1 % Sodium Level 141 136-145 mmol/L Potassium Level 3.8 3.5-5.1 mmol/L Chloride Level 104 98-107 mmol/L Carbon Dioxide Level 29 20-31 mmol/L Anion Gap 8 5-15 Blood Urea Nitrogen 16 9-23 mg/dL Creatinine 0.82 0.700-1.30 mg/dL Glomerular Filtration Rate Calc 102 >90 mL/min BUN/Creatinine Ratio 19.5 10.0-20.0 Serum Glucose 98 74-106 mg/dL Calcium Level 9.0 8.7-10.4 mg/dL [place] [id number] Ph: [phone] DIAGNOSTIC IMAGING Diagnostic Imaging Report : [id number] Signed PATIENT: SULAIMAN YOUNGBLOOD ACCT: [id number] UNIT: [id number] : 1965 LOC: ER ROOM / BED: / AGE / SEX: 60 / M ADM STATUS: REG ER SERVICE 8 ORDERING PHYSICIAN: TAD MENDOZA MD PROCEDURE(s): CXR1 - CHEST XRAY 1 VIEW REASON: CP ORDER NUMBER(s): [id number], ACCESSION NUMBER(s): [id number] CHEST RADIOGRAPH Indication: CP Technique: Single frontal view of the chest was obtained Comparison: XY CHEST XRAY 1 VIEW on DOS: 09/09/24, XY CHEST PORTABLE on DOS: 09/01/24, XY CHEST PORTABLE on DOS: 08/29/24 FINDINGS: Lines and Tubes: None Lungs: No focal consolidation. Pleura: No effusion. No pneumothorax. Cardiomediastinal contours: Unremarkable Bones: No acute osseous abnormality. IMPRESSION: 1. No acute cardiopulmonary disease. ATED BY: ANDREA LANDERS Jr., DO DICTATED DATE/TIME: 06/30/25 100 SIGNED BY: ANDREA LANDERS Jr., SIGNED DATE/TIME: 06/30/251007 CC: Time of 1ST Reevaluation: 10:25 Reevaluation 1ST: Unchanged Patient Education/Counseling: Diagnosis, Treatment, Prognosis Family Education/Counseling: No Family Present SEPSIS Sepsis Screen Date sepsis recognized/suspect: Jun 30, 2025 Time Sepsis recognized/suspect: 909 Recent Procedure: No On Antibiotic Therapy: No Respiratory Rate >20: No Heart Rate >90: No Temp<36 C (96.8 F) or >38.3 C: No SBP <90 or MAP <65 mmHG: No New Acute Mental Status Change: No Is the patient on CPAP, BIPAP,: No Physician Orders Electrocardigram (06/30/25 12:09) Chest Xray 1 View (06/30/25 09:09) Vital Signs Date Time Temp Pulse Resp B/P (MAP) Pulse Ox O2 Delivery O2 Flow Rate FiO2 06/30/25 11:50 97.8 69 14 138/85 (102) 95 97.8 06/30/25 10:40 62 06/30/25 09:10 98.1 57 16 122/78 95 98.1 06/30/25 09:10 56 Laboratory Tests Test 06/30/25 09:18 White Blood Count 6.3 10^3/uL (4.4-10.8) Departure 1 Departure Time of Disposition: 13:20 (Patient presented with chest pain that was concerning for possible STEMI, ACS, PE, Pneumonia, Muscle Strain, COPD, Dissection. Data: 1. I ordered and reviewed the result of at least 3 labs including a CBC, BMP, and Troponin. 2. I independently interpreted the following tests: EKG which shows sinus arrhythmia and Chest X-ray which shows benign chest.Risk:This patient has a high risk of morbidity due to further diagnostic testing or treatment and may suffer from an acute cardiac or respiratory disorder. Workup reveals concern for ACS and patient should be admitted for further workup and possible expert consultation. ) Impression: Primary Impression: Acute chest pain Additional Impression: Suspected heart disease Disposition: ADMITTED INPATIENT Admit to: Tele Condition: Guarded Critical Care Note Critical Care Time?: No Stability Stability form required: No Heart Score Heart Score: Heart Score Response (Comments) Value History N/A 0 EKG N/A 0 Age N/A 0 Risk Factors N/A 0 Troponin N/A 0 Total 0 I personally scribed for TAD MENDOZA MD ([email or web address]) on 06/30/25 at 10:05. Electronically submitted by Jania Paniagua ([email or web address]). I personally scribed for TAD MENDOZA MD ([email or web address]) on 06/30/25 at 10:16. Electronically submitted by Jania Paniagua ([email or web address]). TAD MENDOZA MD Jun 30, 2025 10:05
--- NOTE | 2025-06-30 10:11 | DVH ---
CHEST RADIOGRAPH Indication: CP Technique: Single frontal view of the chest was obtained Comparison: XY CHEST XRAY 1 VIEW on DOS: 09/09/24, XY CHEST PORTABLE on DOS: 09/01/24, XY CHEST PORTABLE on DOS: 08/29/24 FINDINGS: Lines and Tubes: None Lungs: No focal consolidation. Pleura: No effusion. No pneumothorax. Cardiomediastinal contours: Unremarkable Bones: No acute osseous abnormality. IMPRESSION: 1. No acute cardiopulmonary disease.
--- NOTE | 2025-06-30 10:41 | ECG ---
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
[2025-06-30] MEDS ORDERED: ACETAMINOPHEN 325 MG TAB PO PRN (15:30)
[2025-06-30] MEDS ORDERED: DOCUSATE SOD 100 MG CAP PO PRN (15:30)
[2025-06-30] MEDS ORDERED: HYDROcodone-ACET 5/325MG TAB PO PRN (15:30)
[2025-06-30] MEDS ORDERED: ONDANSETRON HCL 4 MG/2 ML VIAL IV PRN (15:30)
[2025-06-30] MEDS ORDERED: MORPHINE SULFATE INJ 2 MG/ml SYRG IV PRN (15:30)
--- NOTE | 2025-06-30 15:51 | DVHHP2 ---
History of Present Illness Reason for Visit: Chest pain History of Present Illness Hamzah Holt is a 60-year-old male with past medial history of diverticulosis, who came to the hospital for chest pain/palpitations. Patient states he has been experiencing chest pain and palpitations intermittently for 3 days. The pain worsened todya prompting him to come to the hospital. GI: Diverticulosis Past Surgical History: Other (right knee) Smoke: No ALCOHOL: none Drugs: None Lives: with Family Domestic Violence: Neg Review of Systems Constitutional: No: Fever, Chills, Sweats, Weakness, Malaise, Other Eyes: No: Pain, Vision change, Conjunctivae inflammation, Eyelid inflammation, Other, Redness ENT: No: Ear pain, Ear discharge, Nose pain, Nose discharge, Nose congestion, Mouth pain, Mouth swelling, Throat pain, Throat swelling, Other Respiratory: No: Cough, Dry, Shortness of breath, SOB with excertion, Wheezing, Hemoptysis, Pleuritic Pain, Sputum, Wheezing, Other Cardiovascular: Chest Pain, Palpitations; No: Orthopnea, Paroxysmal Noc. Dyspnea, Edema, Lt Headedness, Other Gastrointestinal: No: Nausea, Vomiting, Abdominal Pain, Diarrhea, Constipation, Melena, Hematochezia, Other Genitourinary: No Dysuria, No Frequency, No Incontinence, No Hematuria, No Retention, No Other Musculoskeletal: No: other, neck pain, shoulder pain, arm pain, back pain, hand pain, leg pain, foot pain Skin: No: Rash, Lesions, Jaundice, Bruising, Other Neurological: No: Weakness, Numbness, Incoordination, Change in speech, Confusion, Seizures, Other Allergies: Coded Allergies: NO KNOWN ALLERGIES (Unverified , 01/28/16) Medications Current Medications Medications Dose Ordered Sig/Lemuel Route Start Time Stop Time Status Last Admin Dose Admin Sodium Chloride 10 ml Q8HR IV 06/30/25 22:00 Acetaminophen/ Hydrocodone Bitart 1 tab Q4HP PRN PO 06/30/25 15:30 Ondansetron HCl 4 mg Q4HP PRN IV 06/30/25 15:30 Docusate Sodium 100 mg BIDPRN PRN PO 06/30/25 15:30 Enoxaparin Sodium 30 mg DAILY SC 07/01/25 10:00 UNV Acetaminophen 650 mg Q6HP PRN PO 06/30/25 15:30 Nitroglycerin 0.4 mg Q5MINP PRN SL 06/30/25 15:30 Morphine Sulfate 2 mg Q30M PRN IV 06/30/25 15:30 UNV Exam Vital Signs Vital Signs Date Time Temp Pulse Resp B/P (MAP) Pulse Ox O2 Delivery O2 Flow Rate FiO2 06/30/25 14:48 98.3 60 16 127/81 (96) 96 98.3 General Appearance: Alert, Oriented X3, Cooperative HEENT: Atraumatic, PERRLA Respiratory: Clear to auscultation, Normal air movement Cardiovascular: Normal S1, Normal S2, Other (SB-SR, palpitations) Abdominal: Normal bowel sounds, Soft, No tenderness, No hepatospenomegaly Extremities: No clubbing, No cyanosis, No edema, Normal pulses Skin: No rashes, No breakdown, No significant lesion Neuro: Normal gait, Normal speech, Strength at 5/5 X4 ext, Normal tone Psych/Mental Status: Mental status NL, Mood NL Labs/Xrays Labs Test 06/30/25 11:08 06/30/25 09:18 Range/Units Troponin I High Sensitivity < 3 L </=54 ng/L White Blood Count 6.3 4.4-10.8 10^3/uL Red Blood Count 4.86 4.5-5.90 10^6/uL Hemoglobin 14.4 13.5-17.5 g/dL Hematocrit 42.8 41.0-53.0 % Mean Corpuscular Volume 88.0 80.0-100.0 fL Mean Corpuscular Hemoglobin 29.6 28.0-32.0 pg Mean Corpuscular Hemoglobin Concent 33.6 32.0-36.0 g/dL Red Cell Distribution Width 14.1 11.8-14.3 % Platelet Count 223 140-450 10^3/uL Mean Platelet Volume 9.0 6.9-10.8 fL Neutrophils (%) (Auto) 50.3 37.0-80.0 % Lymphocytes (%) (Auto) 35.4 10.0-50.0 % Monocytes (%) (Auto) 9.9 0.0-12.0 % Eosinophils (%) (Auto) 3.9 0.0-7.0 % Basophils (%) (Auto) 0.5 0.0-2.0 % Neutrophils # (Auto) 3.2 1.6-8.6 10 ^3/uL Lymphocytes # (Auto) 2.2 0.4-5.4 10 ^3/uL Monocytes # (Auto) 0.6 0-1.3 10 ^3/uL Eosinophils # (Auto) 0.2 0-0.8 10 ^3/uL Basophils # (Auto) 0 0-0.2 10 ^3/uL Nucleated Red Blood Cells 0.1 % Sodium Level 141 136-145 mmol/L Potassium Level 3.8 3.5-5.1 mmol/L Chloride Level 104 98-107 mmol/L Carbon Dioxide Level 29 20-31 mmol/L Anion Gap 8 5-15 Blood Urea Nitrogen 16 9-23 mg/dL Creatinine 0.82 0.700-1.30 mg/dL Glomerular Filtration Rate Calc 102 >90 mL/min BUN/Creatinine Ratio 19.5 10.0-20.0 Serum Glucose 98 74-106 mg/dL Calcium Level 9.0 8.7-10.4 mg/dL CHEST RADIOGRAPH FINDINGS: Lines and Tubes: None Lungs: No focal consolidation. Pleura: No effusion. No pneumothorax. Cardiomediastinal contours: Unremarkable Bones: No acute osseous abnormality. IMPRESSION: 1. No acute cardiopulmonary disease. SEPSIS Sepsis Screen Date sepsis recognized/suspect: Jun 30, 2025 Time Sepsis recognized/suspect: 909 Recent Procedure: No On Antibiotic Therapy: No Respiratory Rate >20: No Heart Rate >90: No Temp<36 C (96.8 F) or >38.3 C: No SBP <90 or MAP <65 mmHG: No New Acute Mental Status Change: No Is the patient on CPAP, BIPAP,: No Physician Orders Electrocardigram (06/30/25 12:09) Chest Xray 1 View (06/30/25 09:09) Admit (06/30/25 15:30) Code Status (06/30/25 15:30) 2 Gm Sodium Diet (06/30/25 Dinner) Sodium Chloride Lock (Saline Lock Ns) (06/30/25 22:00) Hydrocodone-Acet 5/325mg Tab (Beeler 5/32 (06/30/25 15:30) Ondansetron Hcl (Zofran) (06/30/25 15:30) Docusate Sodium Capsule (Colace Capsule) (06/30/25 15:30) Complete Blood Count (07/01/25 04:00) Comprehensive Metabolic Panel (07/01/25 04:00) Echo 2d Mode Cardiac Dop (06/30/25 15:30) Condition: Serious (06/30/25 15:30) Enoxaparin Sodium (Lovenox) (07/01/25 10:00) Acetaminophen Tablet (Tylenol Tablet) (06/30/25 15:30) Nitroglycerin Sublingual (Ntrostat Subli (06/30/25 15:30) Morphine Sulfate Injection (06/30/25 15:30) Stat Ekg For Chest Pain (06/30/25 15:30) Notify Md Of Changes From Base (06/30/25 15:30) [employer] 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 (06/30/25 15:30) Emergency Dysrhythmia Protocol (06/30/25 15:30) Rhythm Strips Once Every Shift (06/30/25 15:30) Oxygen By Nasal Cannula (06/30/25 15:30) Vital Signs Date Time Temp Pulse Resp B/P (MAP) Pulse Ox O2 Delivery O2 Flow Rate FiO2 06/30/25 14:48 98.3 60 16 127/81 (96) 96 98.3 06/30/25 11:50 97.8 69 14 138/85 (102) 95 97.8 06/30/25 10:40 62 06/30/25 09:10 98.1 57 16 122/78 95 98.1 06/30/25 09:10 56 Laboratory Tests Test 06/30/25 09:18 White Blood Count 6.3 10^3/uL (4.4-10.8) Assessment/Plan Assessment/Plan Assessment: Possible ACS, Acute chest pain, Plan: Admit to Tele, ECHO, Consider cardiology consult if symptoms worsen, ACS protocol, Lipid panel, TSH, A1c, Start ASA and statin, Plan discussed with: Patient My Orders Orders - ALEX ANTONY Procedure Category Date Status Time Admit ADMIT 06/30/25 Transmitted 15:30 Code Status CODE 06/30/25 Transmitted 15:30 2 Gm Sodium Diet DIET 06/30/25 Transmitted Dinner Sodium Chloride Lock PHA 06/30/25 In Process (Saline Lock Ns) 22:00 Hydrocodone-Acet PHA 06/30/25 In Process 5/325mg Tab (Beeler 15:30 Ondansetron Hcl PHA 06/30/25 In Process (Zofran) 15:30 Docusate Sodium PHA 06/30/25 Logged Capsule (Colace 15:30 Complete Blood Count LAB 07/01/25 Verified 04:00 Comprehensive LAB 07/01/25 Verified Metabolic Panel 04:00 Echo 2d Mode Cardiac US 06/30/25 Logged DOP 15:30 Condition: Serious [facility] 06/30/25 In Process 15:30 Enoxaparin Sodium PHA 07/01/25 Logged (Lovenox) 10:00 Acetaminophen Tablet PHA 06/30/25 Logged (Tylenol Tablet) 15:30 Nitroglycerin PHA 06/30/25 Logged Sublingual (Ntrostat 15:30 Morphine Sulfate PHA 06/30/25 Logged Injection 15:30 Stat Ekg For Chest [facility] 06/30/25 In Process Pain 15:30 Notify Md Of Changes [facility] 06/30/25 In Process From Base 15:30 [employer]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
[2025-06-30 16:48] LABS: Triglycerides 176 mg/dL (< 150)
[2025-06-30 16:49] LABS: Cholesterol 192 mg/dL (< 200)
[2025-06-30 16:53] LABS: HDL Cholesterol 39 mg/dL (40-59)
[2025-06-30 18:34] VITALS: PULSE 73; RESP 15; O2SAT 93
[2025-06-30 20:00] VITALS: PULSE 63; RESP 18
[2025-06-30 20:13] VITALS: BP 139/70; PULSE 59; RESP 20; TEMP 97.9; O2SAT 95
[2025-06-30 21:00] VITALS: BP 139/70; PULSE 59; RESP 20; TEMP 97.9; O2SAT 95
[2025-06-30] MEDS: ATORVASTATIN 20 MG TAB PO SCH (21:35)
[2025-06-30] MEDS: SODIUM CHLOR 0.9% PF (SALINE LOCK) 10ML VIAL/SYR IV SCH (21:36)
[2025-07-01 01:00] VITALS: BP 124/64; PULSE 66; RESP 20; TEMP 98.3; O2SAT 92
[2025-07-01 05:00] VITALS: BP 126/69; PULSE 68; RESP 20; TEMP 97.6; O2SAT 94
[2025-07-01 07:19] LABS: Hematocrit 41.3 % (41.0-53.0); Hemoglobin 14.0 g/dL (13.5-17.5); Mean Corpuscular Hemoglobin 29.5 pg (28.0-32.0); Mean Corpuscular Volume 87.2 fL (80.0-100.0); Nucleated Red Blood Cells % 0.0 %
[2025-07-01 07:43] LABS: Alanine Aminotransferase 28 U/L (7-40); Albumin 4.1 g/dL (3.2-4.8); Alkaline Phosphatase 102 U/L (46-116); Anion Gap 10 (5-15); BUN/Creatinine Ratio 20.8 (10.0-20.0); Bilirubin, Total 0.7 mg/dL (0.2-1.0); Blood Urea Nitrogen 15 mg/dL (9-23); Calcium 9.0 mg/dL (8.7-10.4); Carbon Dioxide 27 mmol/L (20-31); Chloride 103 mmol/L (98-107); Potassium 4.2 mmol/L (3.5-5.1); Sodium 140 mmol/L (136-145); Total Protein 6.8 g/dL (5.7-8.2)
[2025-07-01 07:46] LABS: Glucose 107 mg/dL (74-106)
[2025-07-01 08:00] VITALS: PULSE 64; RESP 18
[2025-07-01] MEDS: ENOXAPARIN SOD 40 MG/0.4 ML SYRINGE SC SCH (09:57)
[2025-07-01] MEDS: NITROGLYCERIN 0.4 MG SL TAB SL PRN (10:00)
--- NOTE | 2025-07-01 12:09 | DVHPN2 ---
Subjective no more chest pain Reviewed: H&P Changes from previous H/P or p: No Changes Eyes: No Pain, No Vision change, No Conjunctivae inflammation, No Eyelid inflammation, No Other, No Redness ENT: No Ear pain, No Ear discharge, No Nose pain, No Nose discharge, No Nose congestion, No Mouth pain, No Mouth swelling, No Throat pain, No Throat swelling, No Other Cardiovascular: Chest Pain, Palpitations; No Orthopnea, No Paroxysmal Noc. Dyspnea, No Edema, No Lt Headedness, No Other Respiratory: No Cough, No Dry, No Shortness of breath, No SOB with excertion, No Wheezing, No Hemoptysis, No Pleuritic Pain, No Sputum, No Other Gastrointestinal: No Nausea, No Vomiting, No Abdominal Pain, No Diarrhea, No Constipation, No Melena, No Hematochezia, No Other Genitourinary: No Dysuria, No Frequency, No Incontinence, No Hematuria, No Retention, No Other Musculoskeletal: No other, No neck pain, No shoulder pain, No arm pain, No back pain, No hand pain, No leg pain, No foot pain Skin: No Rash, No Lesions, No Jaundice, No Bruising, No Other Objective Vitals Vital Signs Date Time Temp Pulse Resp B/P (MAP) Pulse Ox O2 Delivery O2 Flow Rate FiO2 07/01/25 05:00 97.6 68 20 126/69 (88) 94 97.6 06/30/25 20:00 Room Air* 0 21 Intake/Output Intake and Output 07/01/25 07:00 Intake Total 200 ml Balance 200 ml Intake Oral 200 ml # Voids 1 General Appearance: Alert, Oriented X3 HEENT: Atraumatic Lungs: Clear to auscultation Cardiovascular: Regular rate, Normal S1, Normal S2 Abdomen: Normal bowel sounds Medications Current Medications Medications Dose Ordered Sig/Lemuel Route Start Time Stop Time Status Last Admin Dose Admin Sodium Chloride 10 ml Q8HR IV 06/30/25 22:00 07/01/25 05:36 10 ML Acetaminophen/ Hydrocodone Bitart 1 tab Q4HP PRN PO 06/30/25 15:30 Ondansetron HCl 4 mg Q4HP PRN IV 06/30/25 15:30 Docusate Sodium 100 mg BIDPRN PRN PO 06/30/25 15:30 Enoxaparin Sodium 40 mg DAILY SC 07/01/25 10:00 07/01/25 09:57 40 MG Acetaminophen 650 mg Q6HP PRN PO 06/30/25 15:30 Nitroglycerin 0.4 mg Q5MINP PRN SL 06/30/25 15:30 Morphine Sulfate 2 mg Q30M PRN IV 06/30/25 15:30 Aspirin 81 mg DAILY PO 07/01/25 10:00 07/01/25 09:58 81 MG Atorvastatin Calcium 40 mg HS PO 06/30/25 22:00 06/30/25 21:35 40 MG Laboratory Results Laboratory Tests 07/01/25 06:53 Chemistry Test 07/01/25 06:53 Albumin 4.1 g/dL (3.2-4.8) Calcium Level 9.0 mg/dL (8.7-10.4) Total Protein 6.8 g/dL (5.7-8.2) LFT Test 07/01/25 06:53 Alanine Aminotransferase (ALT) 28 U/L (7-40) Alkaline Phosphatase 102 U/L (46-116) Aspartate Amino Transferase (AST) 23 U/L (13-40) Total Bilirubin 0.7 mg/dL (0.2-1.0) Assessment/Plan Assessment/Plan Possible ACS, Sleep apnea Consult pulmonary echo pending aspirin and statin Plan discussed with: Patient My Orders Orders - JAYNE RODRIGUEZ MD Procedure Category Date Status Time *Consult CONS 07/01/25 Transmitted 11:25 Date of Service: Jul 01, 2025 Billing Provider: JAYNE RODRIGUEZ MD Common Visit Codes: [id number] INP/OBS CARE(HIGH) JAYNE RODRIGUEZ MD Jul 01, 2025 12:09
[2025-07-01 17:00] VITALS: BP 118/78; PULSE 74; RESP 26; TEMP 97.6; O2SAT 95
[2025-07-01 20:00] VITALS: PULSE 63; RESP 18; O2SAT 94
[2025-07-01 21:00] VITALS: BP 112/72; PULSE 72; RESP 20; TEMP 97.6; O2SAT 95
--- NOTE | 2025-07-01 23:07 | DVHINCON2 ---
Date of service: Jul 01, [address] Roche Reason for Consultation Possible obstructive sleep apnea History of Present Illness A 60 year old man with past medical history of asthma who presented to the ED on 06/30/25 with a chief complaint of chest pain, onset 3 days. Patient stated he has been experiencing constant, nonradiating, sharp chest pain for the past 3 days as well as intermittent palpitations. Patient noticed symptoms worsened on the morning of presentation, thus came in to ED. Denied headache, fever, chills, nausea, vomiting, diarrhea or other acute complaints. Patient was admitted for further care. Pulmonary consultation is requested for evaluation and management for possible obstructive sleep apnea. Review of Systems: 14-point review of systems negative unless otherwise noted above. Past Medical History: Asthma Past Surgical History: None Medications: Reviewed. Allergies: No known drug allergies. Family History: Diabetes mellitus and breast cancer. Social History: Nonsmoker. No alcohol or illicit drug use. Family History: Diabetes mellitus G8 MOTHER G8 BROTHER G8 BROTHER G8 SISTER FH: breast cancer G8 MOTHER Allergies: Coded Allergies: NO KNOWN ALLERGIES (Unverified , 01/28/16) Home Meds Active Scripts Atorvastatin Calcium (ATORVASTATIN CALCIUM) 20 Mg Tab, 40 MG PO HS for 90 Days, #180 TAB Prov:JAYNE ROCHE MD 07/02/25 Aspirin (Aspirin Low Dose) 81 Mg Tab, 81 MG PO DAILY for 90 Days, #90 TAB Prov:JAYNE ROCHE MD 07/02/25 Current Medications Current Medications Medications (Trade) Dose Ordered Sig/Lemuel Route PRN Reason Start Time Stop Time Status Last Admin Enoxaparin Sodium (Lovenox) 40 mg DAILY SC 07/01/25 10:00 07/01/25 09:57 Aspirin 81 mg DAILY PO 07/01/25 10:00 07/01/25 09:58 Vital Signs Vital Signs Date Time Temp Pulse Resp B/P (MAP) Pulse Ox O2 Delivery O2 Flow Rate FiO2 07/01/25 21:00 97.6 72 20 112/72 (85) 95 97.6 07/01/25 08:00 Room Air* 0 21 Physical Exam Gen.: Patient lying in bed in no apparent distress. On supplemental oxygen. Head: Normocephalic, atraumatic. Eyes: EOMI/PERRLA. Ears: Normal hearing. Normal anatomy. Neck/trachea: Trachea midline, supple. Nose: Normal external anatomy. Mouth: Moist mucous membranes. Chest: Decreased air entry bilaterally. No wheezing or rhonchi. Cardiovascular: Positive S1, positive S2. Regular rate and rhythm. Abdomen: Positive bowel sounds in all 4 quadrants. Soft, non-tender, non-distended. : Deferred. Rectal: Deferred. Skin: Warm, dry. Intact. Extremities: 2+ radial pulses bilaterally. No lower extremity edema. Neuro: Awake, alert, oriented x3. No gross motor or sensory deficits. Cranial nerves II through XII intact. Gait not assessed. Labs/Diagnostic Data Labs Test 07/01/25 06:53 06/30/25 11:08 06/30/25 09:18 Range/Units White Blood Count 5.8 4.4-10.8 10^3/uL Red Blood Count 4.73 4.5-5.90 10^6/uL Hemoglobin 14.0 13.5-17.5 g/dL Hematocrit 41.3 41.0-53.0 % Mean Corpuscular Volume 87.2 80.0-100.0 fL Mean Corpuscular Hemoglobin 29.5 28.0-32.0 pg Mean Corpuscular Hemoglobin Concent 33.8 32.0-36.0 g/dL Red Cell Distribution Width 14.0 11.8-14.3 % Platelet Count 212 140-450 10^3/uL Mean Platelet Volume 8.9 6.9-10.8 fL Neutrophils (%) (Auto) 53.5 37.0-80.0 % Lymphocytes (%) (Auto) 31.9 10.0-50.0 % Monocytes (%) (Auto) 9.9 0.0-12.0 % Eosinophils (%) (Auto) 4.2 0.0-7.0 % Basophils (%) (Auto) 0.5 0.0-2.0 % Neutrophils # (Auto) 3.1 1.6-8.6 10 ^3/uL Lymphocytes # (Auto) 1.8 0.4-5.4 10 ^3/uL Monocytes # (Auto) 0.6 0-1.3 10 ^3/uL Eosinophils # (Auto) 0.2 0-0.8 10 ^3/uL Basophils # (Auto) 0 0-0.2 10 ^3/uL Nucleated Red Blood Cells 0.0 % Sodium Level 140 136-145 mmol/L Potassium Level 4.2 3.5-5.1 mmol/L Chloride Level 103 98-107 mmol/L Carbon Dioxide Level 27 20-31 mmol/L Anion Gap 10 5-15 Blood Urea Nitrogen 15 9-23 mg/dL Creatinine 0.72 0.700-1.30 mg/dL Glomerular Filtration Rate Calc 106 >90 mL/min BUN/Creatinine Ratio 20.8 H 10.0-20.0 Serum Glucose 107 H 74-106 mg/dL Calcium Level 9.0 8.7-10.4 mg/dL Total Bilirubin 0.7 0.2-1.0 mg/dL Aspartate Amino Transferase (AST) 23 13-40 U/L Alanine Aminotransferase (ALT) 28 7-40 U/L Alkaline Phosphatase 102 46-116 U/L Total Protein 6.8 5.7-8.2 g/dL Albumin 4.1 3.2-4.8 g/dL Troponin I High Sensitivity < 3 L </=54 ng/L Triglycerides Level 176 H < 150 mg/dL Cholesterol Level 192 < 200 mg/dL LDL Cholesterol 126 H < 100 mg/dL HDL Cholesterol 39 L 40-59 mg/dL Thyroid Stimulating Hormone (TSH) 1.45 0.55-4.78 uIU/mL Hemoglobin A1c 6.1 H <5.7 % A1C Assessment Impression: Possible ACS Snoring, rule out JET Nocturnal hypoxia Obesity, BMI 30 Plan: Supplemental oxygen Titrate to keep O2 sats above 92%. Follow up Echocardiogram Follow up Cardiology recommendations On aspirin, atorvastatin IV fluids with normal saline. Monitor renal function. Monitor electrolytes. Supplement as necessary. Monitor ins and outs. Recommend diet and lifestyle modifications for weight reduction Obesity complicates all care Recommend outpatient evaluation for sleep apnea. Patient has risk factors for JET. DVT prophylaxis - Lovenox. Prognosis: Guarded given patient's multiple co-morbidities. Rest of plan per hospitalist and other consultants. Thank you, Dr. Roche, for allowing me to participate in this patient's care. Further recommendations will depend on the patient's clinical course. Please do not hesitate to contact me if you have any questions or concerns. This medical document was created using an electronic medical record system with [employer] system. Although these documentations are being carefully reviewed, there may still be some phonetic and typographical changes. The errors are purely typographical, due to imperfection on the software program, and do not reflect any compromise in the patient's medical care. Plan discussed with: Patient, Other (RN/Dr. Roche) Visit Coding Pulmonary Billing Provider: TEJAL TURNER MD Date of Service if different f: Jul 01, 2025 Common Visit Codes: [id number] INP/OBS CARE (HIGH) TEJAL TURNER MD Jul 01, 2025 23:07
[2025-07-02 01:00] VITALS: BP 117/75; PULSE 58; RESP 16; TEMP 97.9; O2SAT 97
[2025-07-02 05:00] VITALS: BP_SYST 115; BP_SYST 150; BP_DIAS 70; BP_DIAS 93; PULSE 61; PULSE 68; RESP 16; TEMP 98; TEMP 98.1; O2SAT 97; O2SAT 98
[2025-07-02 08:00] VITALS: PULSE 61; RESP 18; O2SAT 97
[2025-07-02 09:00] VITALS: BP 122/76; PULSE 61; RESP 18; TEMP 98.9; O2SAT 97
[2025-07-02] MEDS ORDERED: ASPI-325 PO (12:15)
[2025-07-02] MEDS ORDERED: ATOR20TA50 PO (12:15)
[2025-07-02 13:00] VITALS: BP 129/84; PULSE 75; RESP 16; TEMP 98.7; O2SAT 95
[2025-07-02 17:07] VITALS: BP 119/84; PULSE 68; RESP 16; TEMP 98.8; O2SAT 99
--- NOTE | 2025-07-02 23:28 | DVHPN2 ---
Subjective DOS: 07/02/2025 Patient seen and examined at bedside. Remains on supplemental oxygen Overnight events reviewed. Reviewed: H&P Changes from previous H/P or p: No Changes Eyes: No Pain, No Vision change, No Conjunctivae inflammation, No Eyelid inflammation, No Other, No Redness ENT: No Ear pain, No Ear discharge, No Nose pain, No Nose discharge, No Nose congestion, No Mouth pain, No Mouth swelling, No Throat pain, No Throat swelling, No Other Cardiovascular: Chest Pain, Palpitations; No Orthopnea, No Paroxysmal Noc. Dyspnea, No Edema, No Lt Headedness, No Other Respiratory: No Cough, No Dry, No Shortness of breath, No SOB with excertion, No Wheezing, No Hemoptysis, No Pleuritic Pain, No Sputum, No Other Gastrointestinal: No Nausea, No Vomiting, No Abdominal Pain, No Diarrhea, No Constipation, No Melena, No Hematochezia, No Other Genitourinary: No Dysuria, No Frequency, No Incontinence, No Hematuria, No Retention, No Other Musculoskeletal: No other, No neck pain, No shoulder pain, No arm pain, No back pain, No hand pain, No leg pain, No foot pain Skin: No Rash, No Lesions, No Jaundice, No Bruising, No Other Objective Vitals Vital Signs Date Time Temp Pulse Resp B/P (MAP) Pulse Ox O2 Delivery O2 Flow Rate FiO2 07/02/25 17:07 98.8 68 16 119/84 (96) 99 98.8 07/02/25 08:00 Nasal Cannula* 2 28 Intake/Output Intake and Output 07/02/25 07:00 Intake Total 200 ml Balance 200 ml Intake Oral 200 ml Exam Gen.: Patient lying in bed in no apparent distress. On supplemental oxygen. Head: Normocephalic, atraumatic. Eyes: EOMI/PERRLA. Ears: Normal hearing. Normal anatomy. Neck/trachea: Trachea midline, supple. Nose: Normal external anatomy. Mouth: Moist mucous membranes. Chest: Decreased air entry bilaterally. No wheezing or rhonchi. Cardiovascular: Positive S1, positive S2. Regular rate and rhythm. Abdomen: Positive bowel sounds in all 4 quadrants. Soft, non-tender, non- distended. : Deferred. Rectal: Deferred. Skin: Warm, dry. Intact. Extremities: 2+ radial pulses bilaterally. No lower extremity edema. Neuro: Awake, alert, oriented x3. No gross motor or sensory deficits. Cranial nerves II through XII intact. Gait not assessed. General Appearance: Alert, Oriented X3 HEENT: Atraumatic Lungs: Clear to auscultation Cardiovascular: Regular rate, Normal S1, Normal S2 Abdomen: Normal bowel sounds Laboratory Results Laboratory Tests 07/01/25 06:53 Assessment/Plan Assessment/Plan Impression: Possible ACS Snoring, rule out JET Nocturnal hypoxia Obesity, BMI 30 Events: On supplemental oxygen, 2 LPM NC Taper O2 as tolerated No overnight events. Patient with snoring, nocturnal hypoxia. Increased risk factors for JET with snoring, obesity. Recommend outpatient referral to sleep specialist for sleep study for evaluation of JET. CXR on 06/30/25 shows no acute disease. Labs and imaging reviewed. Rest of plan as noted below. Plan: Supplemental oxygen Titrate to keep O2 sats above 92%. Follow up Echocardiogram Follow up Cardiology recommendations On aspirin, atorvastatin IV fluids with normal saline. Monitor renal function. Monitor electrolytes. Supplement as necessary. Monitor ins and outs. Recommend diet and lifestyle modifications for weight reduction Obesity complicates all care Recommend outpatient evaluation for sleep apnea. DVT prophylaxis - Lovenox. Prognosis: Guarded given patient's multiple co-morbidities. Rest of plan per hospitalist and other consultants. Thank you, Dr. Roche, for allowing me to participate in this patient's care. Further recommendations will depend on the patient's clinical course. Please do not hesitate to contact me if you have any questions or concerns. This medical document was created using an electronic medical record system with [employer] dictation system. Although these documentations are being carefully reviewed, there may still be some phonetic and typographical changes. The errors are purely typographical, due to imperfection on the software program, and do not reflect any compromise in the patient's medical care. Plan discussed with: Patient, Other (ESME Villasenor) Visit Coding Pulmonary Billing Provider: TEJAL TURNER MD Date of Service if different f: Jul 02, 2025 Common Visit Codes: [id number] INP/OBS CARE(HIGH) TEJAL TURNER MD Jul 02, 2025 23:28
--- NOTE | 2025-07-03 16:07 | DVHSR ---
APPROVED REPORT EXAM: Two-dimensional and M-mode echocardiogram with Doppler and color Doppler. Blood Pressure: 115/70 mmHg INDICATION Palpitations RISK FACTORS Height: 5'9", Weight: 203 DIMENSIONS LVDd 5.2 (3.8-5.7cm) LA (2D) 4.6 (1.9-4.0cm) Aortic Root 3.8 (2.0-3.7cm) LVDs 2.8 (2.5-4.0cm) LA (MM) (1.9-4.0cm) Aortic Cusp Exc 1.4 (1.5-2.0cm) EF (%) 77.0 (55-70%) Rt. Atrium 3.7 (1.9-4.0cm) Asc. Aorta 3.7 cm IVSd 1.2 (0.7-1.1cm) RV (D) 4.4 (1.8-2.4cm) PWd 0.6 (0.7-1.1cm) Mitral Valve Mitral Mitral Stenosis E wave 0.49m/s MV Mean GR. mmHg A wave 0.67m/s MV Peak GR. mmHg E/A ratio 0.7 2D MVA cm2 DECEL Time 220ms PRESS 1/2 Time ms Aortic Valve Aortic Valve Aortic Stenosis V1 1.20m/s AO Mean GR. 6mmHg V2 1.63m/s AO Peak GR. 11mmHg LVOT Diameter 2.0 (1.8-2.4cm) Doppler BETH 2.31cm2 Pulmonic Valve V2 1.00m/s Other Information Quality : Technically Limited Rhythm : Conclusion LVEF normal at 60-65%, Right ventricle size and function normal No significant valve disease noted
--- NOTE | 2025-08-10 14:21 | DVHDS2 ---
Discharge Summary Date of Admission Jun 30, 2025 at 15:30 Date of Discharge: Jul 02, 2025 Labs/Diagnostic Data: Laboratory Results Test 07/01/25 06:53 06/30/25 11:08 06/30/25 09:18 White Blood Count 5.8 10^3/uL (4.4-10.8) Red Blood Count 4.73 10^6/uL (4.5-5.90) Hemoglobin 14.0 g/dL (13.5-17.5) Hematocrit 41.3 % (41.0-53.0) Mean Corpuscular Volume 87.2 fL (80.0-100.0) Mean Corpuscular Hemoglobin 29.5 pg (28.0-32.0) Mean Corpuscular Hemoglobin Concent 33.8 g/dL (32.0-36.0) Red Cell Distribution Width 14.0 % (11.8-14.3) Platelet Count 212 10^3/uL (140-450) Mean Platelet Volume 8.9 fL (6.9-10.8) Neutrophils (%) (Auto) 53.5 % (37.0-80.0) Lymphocytes (%) (Auto) 31.9 % (10.0-50.0) Monocytes (%) (Auto) 9.9 % (0.0-12.0) Eosinophils (%) (Auto) 4.2 % (0.0-7.0) Basophils (%) (Auto) 0.5 % (0.0-2.0) Neutrophils # (Auto) 3.1 10 ^3/uL (1.6-8.6) Lymphocytes # (Auto) 1.8 10 ^3/uL (0.4-5.4) Monocytes # (Auto) 0.6 10 ^3/uL (0-1.3) Eosinophils # (Auto) 0.2 10 ^3/uL (0-0.8) Basophils # (Auto) 0 10 ^3/uL (0-0.2) Nucleated Red Blood Cells 0.0 % Sodium Level 140 mmol/L (136-145) Potassium Level 4.2 mmol/L (3.5-5.1) Chloride Level 103 mmol/L (98-107) Carbon Dioxide Level 27 mmol/L (20-31) Anion Gap 10 (5-15) Blood Urea Nitrogen 15 mg/dL (9-23) Creatinine 0.72 mg/dL (0.700-1.30) Glomerular Filtration Rate Calc 106 mL/min (>90) BUN/Creatinine Ratio 20.8 (10.0-20.0) Serum Glucose 107 mg/dL (74-106) Calcium Level 9.0 mg/dL (8.7-10.4) Total Bilirubin 0.7 mg/dL (0.2-1.0) Aspartate Amino Transferase (AST) 23 U/L (13-40) Alanine Aminotransferase (ALT) 28 U/L (7-40) Alkaline Phosphatase 102 U/L (46-116) Total Protein 6.8 g/dL (5.7-8.2) Albumin 4.1 g/dL (3.2-4.8) Troponin I High Sensitivity < 3 ng/L (</=54) Triglycerides Level 176 mg/dL (< 150) Cholesterol Level 192 mg/dL (< 200) LDL Cholesterol 126 mg/dL (< 100) HDL Cholesterol 39 mg/dL (40-59) Thyroid Stimulating Hormone (TSH) 1.45 uIU/mL (0.55-4.78) Hemoglobin A1c 6.1 % A1C (<5.7) Other Laboratory Tests 07/01/25 06:53 Brief Hx & Hospital Course: Hamzah Holt is a 60-year-old male with past medial history of diverticulosis, who came to the hospital for chest pain/palpitations. Patient states he has been experiencing chest pain and palpitations intermittently for 3 days. The pain worsened todya prompting him to come to the hospital. All workup negative Condition at Discharge: Good Final Diagnosis/Problems List Musculoskeletal Chest pain Discharge Disposition: Home Discharge Instruct/Medications Diet: Regular Activity: No Restrictions, As Tolerated Follow Up/Referral: PCP in 7 days Medications: aspirin, statin Scheduled Aspirin (Aspirin Low Dose), 81 MG PO DAILY Atorvastatin Calcium (Atorvastatin Calcium), 40 MG PO HS Discharge Statement: "Patient was advised to return to the ER or call 911 if any headaches, dizziness, shortness of breath, chest pain, abdominal pain, bleeding, fevers, or worsening of medical condition. Patient was counseled about treatment plan, medications, possible side effects, patientverbalized understanding. All questions were answered to the best of my ability. This discharge took greater then 30 minutes in planning, reviewing documentation, counseling the patient, and discussing with other team members." ASSESSMENT ASSESSMENT Assessment Musculoskeletal Chest pain Date of Service: Jul 02, 2025 Billing Provider: JAYNE RODRIGUEZ MD Common Visit Codes: 19335-NYF/OBS DISCH DAY >30min JAYNE RODRIGUEZ MD Aug 10, 2025 14:21
== END 2025-07-02 17:05 | disposition home or self-care (01) | DRG 203 ==
LOC: ER 09:05 → OVERFLOW 15:30 → TELE-EAST 07-01 21:48
PROVIDERS: ADMIT Hospitalist; ATTEND Hospitalist
DX: R07.89 Other chest pain (principal); E66.9 Obesity, unspecified; J45.909 Unspecified asthma, uncomplicated; G47.33 Obstructive sleep apnea (adult) (pediatric); K57.30 Diverticulosis of large intestine without perforation or abscess without bleeding; Z80.3 Family history of malignant neoplasm of breast; Z68.30 Body mass index [BMI] 30.0-30.9, adult; Z83.3 Family history of diabetes mellitus; Z79.82 Long term (current) use of aspirin
CPT/HCPCS: 36415; 71045; 80048; 80053; 80061; 83036; 84443; 84484; 85025; 93005; 93306; G0378